=== PATIENT | male | born 1975 | race Hispanic/Latino ===

== ENCOUNTER 2017-01-21 07:26 | Inpatient (IN) | payer MEDICAID, OTHER ==
[2017-01-21 07:26] VITALS: BMI 33.0
[2017-01-21 07:55] VITALS: O2SAT 96
--- NOTE | 2017-01-21 09:16 | ED PDOC ---
HPI: Psych/Substance Abuse Time Seen by Provider: 01/21/17 07:33 Chief Complaint (Nursing): Psychiatric Evaluation Chief Complaint (Provider): suicidal ideation History Per: Patient History/Exam Limitations: no limitations Onset/Duration Of Symptoms: Days (x 1 week) Additional Complaint(s): Greg Mejia is a 41 year old male, with a previous medical history of bipolar disorder, schizophrenia, hypertension and hypercholesterolemia, who presents to the ED with complaints of suicidal ideation associated with auditory hallucinations ongoing for the past week. Patient denies any visual hallucinations, homicidal ideation or suicidal plan. He reports voices are "bad " and sad". Patient states he has not been taking his psych medications for the past week because he ran out. PMD: none provided Past Medical History Reviewed: Historical Data, Nursing Documentation, Vital Signs Vital Signs: Last Vital Signs Temp 98.3 F 01/21/17 07:48 Pulse 91 H 01/21/17 07:48 Resp 18 01/21/17 07:48 BP 124/72 01/21/17 07:48 Pulse Ox 96 01/21/17 07:48 - Medical History PMH: Bipolar Disorder, Depression, HTN, Hypercholesterolemia, Schizophrenia Denies: Alzheimer's Disease, Anemia, Arthritis, Asthma, Atrial Fibrillation, Bronchitis, Cardia Arrhythmia, CHF, COPD, Crohn's Disease, Dementia, Diabetes, Diverticulitis, Emphysema, Fractures, Gastritis, Gall Bladder Disease, Hepatitis , HIV, Hyperthyroidism, Hypothyroidism, Kidney Stones, Migraine, Mitral Valve Prolapse, Multiple Sclerosis, Osteoporosis, Pancreatitis, Parkinson's Disease, Peripheral Edema, Pneumonia, Pulmonary Embolism, Chronic Kidney Disease, Rheumatoid Arthritis, Seizures, Sickle Cell Disease, Sexually Transmitted Disease, TIA - Surgical History Surgical History: Denies: Appendectomy, CABG, Carotid Endarterectomy, Cholecystectomy, Coronary Stent, Pacemaker, Tonsillectomy - Family History Family History: States: Unknown Family Hx - Home Medications Home Medications: Ambulatory Orders Medication Instructions Recorded Aspirin [Aspirin Chewable] 81 mg PO DAILY 12/14/16 Atorvastatin [Lipitor] 10 mg PO HS 12/14/16 MetFORMIN [glucOPHAGE] 1,000 mg PO DAILY 12/14/16 Olanzapine [Zyprexa] 20 mg PO HS 12/14/16 Losartan [Cozaar] 25 mg PO DAILY 01/21/17 Omeprazole [Omeprazole] 40 mg PO DAILY 01/21/17 - Allergies Allergies/Adverse Reactions: Allergies Allergy/AdvReac Type Severity Reaction Status Date / Time No Known Allergies Allergy Verified 01/21/17 07:48 Review of Systems ROS Statement: Except As Marked, All Systems Reviewed And Found Negative Psych: Positive for: Suicidal ideation, Other (auditory hallucinations, no visual hallucinations, no homicidal ideation, no suicidal plan) Physical Exam - Reviewed Nursing Documentation Reviewed: Yes Vital Signs Reviewed: Yes - Physical Exam Appears: Positive for: Well, Non-toxic, No Acute Distress Head Exam: Positive for: ATRAUMATIC, NORMAL INSPECTION, NORMOCEPHALIC Skin: Positive for: Normal Color, Warm, DRY Eye Exam: Positive for: EOMI, Normal appearance, PERRL ENT: Positive for: Normal ENT Inspection Neck: Positive for: Normal, Painless ROM Cardiovascular/Chest: Positive for: Regular Rate, Rhythm Respiratory: Positive for: CNT, Normal Breath Sounds Gastrointestinal/Abdominal: Positive for: Normal Exam, Bowel Sounds, Soft Back: Positive for: Normal Inspection Extremity: Positive for: Normal ROM Neurologic/Psych: Positive for: Alert, Oriented, Other (patient is calm and cooperative ) - Laboratory Results Result Diagrams: 01/21/17 10:00 01/21/17 10:00 - ECG O2 Sat by Pulse Oximetry: 96 (RA) Pulse Ox Interpretation: Normal Medical Decision Making Medical Decision Making: Initial Impression: Schizoaffective disorder Initial Plan: * alcohol serum * labs * urine drug screen * crisis evaluation * urinalysis * reevaluation Vital signs are stable. Labs reviewed. In my opinion there are no current acute medical conditions that contraindicate the placement of this patient in a psychiatric unit. Scribe Attestation: Documented by Geovanna Ricketts, acting as a scribe for Jonas Briggs MD. Provider Scribe Attestation: All medical record entries made by the Scribe were at my direction and personally dictated by me. I have reviewed the chart and agree that the record accurately reflects my personal performance of the history, physical exam, medical decision making, and the department course for this patient. I have also personally directed, reviewed, and agree with the discharge instructions and disposition. Disposition - Clinical Impression Clinical Impression: Schizoaffective disorder, Cocaine abuse - Patient ED Disposition Is Patient to be Admitted: Yes Doctor Will See Patient In The: Hospital Counseled Patient/Family Regarding: Studies Performed, Diagnosis - Disposition Disposition Time: 12:32 Condition: GOOD - Pt Status Changed To: Hospital Disposition Of: Inpatient - Admit Certification Admit to Inpatient:: After my assessment, the patient will require hospitalization for at least two midnights. This is because of the severity of symptoms shown, intensity of services needed, and/or the medical risk in this patient being treated as an outpatient. - POA Present On Arrival: None
[2017-01-21 10:06] LABS: BASO # 0.1 K/uL (0.0-0.2); BASO % 0.8 % (0.0-2.0); EOS # 0.7 K/uL (0.0-0.7); EOS % 8.1 % (0.0-4.0); HEMOGLOBIN 12.6 g/dL (12.0-18.0); LYMPH # 1.8 K/uL (1.0-4.3); MEAN CELL VOLUME 87.1 fl (80.0-94.0); MEAN CORPUSCULAR HEMOGLOBIN 29.4 pg (27.0-31.0); MEAN CORPUSCULAR HGB CONC 33.8 g/dL (33.0-37.0); MEAN PLATELET VOLUME 8.6 fl (7.2-11.7); MONO # 0.8 K/uL (0.0-0.8); MONO % 9.9 % (0.0-10.0); NEUT # 4.8 K/uL (1.8-7.0); NEUT % 59.2 % (50.0-75.0); NRBC % 0.1 % (0.0-0.0); RBC 4.29 Mil/uL (4.40-5.90); WHITE BLOOD COUNT 8.1 K/uL (4.8-10.8)
[2017-01-21 10:23] LABS: BARBITURATES, UR NEGATIVE (NEGATIVE); BENZODIAZEPINES, UR NEGATIVE (NEGATIVE); OPIATES, UR NEGATIVE (NEGATIVE); PHENCYCLIDINE, UR NEGATIVE (NEGATIVE); SQUAMOUS EPITHIAL < 1 /hpf (0-5); URINE BILIRUBIN NEGATIVE (NEGATIVE); URINE BLOOD NEGATIVE (NEGATIVE); URINE CLARITY SLIGHTY-CLOUDY (Clear); URINE COLOR YELLOW (YELLOW); URINE GLUCOSE (UA) NEG (Normal); URINE LEUKOCYTE ESTERASE NEG Leu/uL (Negative); URINE NITRATE NEGATIVE (NEGATIVE); URINE PROTEIN 100 mg/dL (NEGATIVE); URINE UROBILINOGEN 0.2-1.0 mg/dL (0.2-1.0)
[2017-01-21 10:27] LABS: ALB/GLOB RATIO 1.3 (1.0-2.1); ALBUMIN 3.8 g/dL (3.5-5.0); ALT/SGPT 39 U/L (21-72); AST/SGOT 30 U/L (17-59); BLOOD UREA NITROGEN 14 mg/dl (9-20); CALCIUM 9.1 mg/dL (8.4-10.2); GFR AFRICAN-AMERICAN > 60; GFR NON-AFRICAN AMERICAN > 60
[2017-01-21] MEDS ORDERED: Potassium Chloride 20 mEq ER Tab PO ONE ×2 (12:04→12:45)
[2017-01-21] MEDS ORDERED: Magnesium Hydroxide Susp 30 ml UD PO PRN (14:36)
[2017-01-21] MEDS ORDERED: DiphenhydrAMINE 50 mg/ml Inj IM PRN (14:36)
[2017-01-21] MEDS ORDERED: Alum-Mag Hydrox-Simethicone Susp (30 mL) PO PRN (14:36)
--- NOTE | 2017-01-21 14:50 | PCM.PSYCH ---
Initial Psychiatric Evaluation - Initial Psychiatric Evaluation Type of Admission: Voluntary Legal Status: Capacity Chief Complaint (in patient's own words): i stopped my meds Patient's Reaction to Hospitalization: cooperative History of Present Illness and Precipitating Events: pt is a 41 yo male with history of schizophrenia and cocaine dependence. he is living alone in [place]. he goes to [facility] out and has recently been taking 35mg zyprexa at night. he states he was doing well until recently. he relapsed on crack cocaine and has been using daily and has started selling his posessions to pay- he is guarded about his exact use. states he stopped his zyprexa about a week ago and now he is hearing voices that are degrading and negative. he feels depressed, does not want to get out of bed and has suicidal thoughts. he came in seeking help because he wants to live and he states he has no intention now of harming himself. he denies manic symptoms. he reports he does not want to return to [facility] or to an in rehab. Current Medications: Active Medications Generic Name Dose Route Start Last Admin Trade Name Freq PRN Reason Stop Dose Admin Acetaminophen 650 mg 01/21/17 14:36 Tylenol 325mg Tab PO Q4 PRN Pain, moderate (4-7) Al Hydrox/Mg Hydrox/Simethicone 30 ml 01/21/17 14:36 Maalox Plus 30 Ml PO Q4 PRN Dyspepsia Diphenhydramine HCl 50 mg 01/21/17 14:36 Benadryl IM Q6 PRN Extrapyramidal S/S Unable PO Diphenhydramine HCl 50 mg 01/21/17 14:36 Benadryl PO Q6 PRN Extrapyramidal Symptoms Haloperidol 5 mg 01/21/17 14:36 Haldol PO Q4 PRN Agitation Haloperidol Lactate 5 mg 01/21/17 14:36 Haldol IM Q4 PRN Agitation, Unable to Take PO Lorazepam 2 mg 01/21/17 14:36 Ativan IM Q4 PRN Anxiety/Agitation,Unable PO Lorazepam 2 mg 01/21/17 14:36 Ativan PO Q4 PRN Anxiety/Agitation Magnesium Hydroxide 30 ml 01/21/17 14:36 Milk Of Magnesia PO HS PRN Constipation Olanzapine 10 mg 01/21/17 14:45 Zyprexa PO DAILY [facility] Olanzapine 20 mg 01/21/17 22:00 Zyprexa PO [facility] Past Psychiatric History - Past Psychiatric History Previous Treatment History: Inpatient Prior Professional Help: as per hpi. last admission in 2016 Prior Psychiatric Treatment: states he finished [facility] History of Abuse: denies History of ETOH/Drug Use: denies other drug or cigarette use. using crack cocaine. states he only started using in last two weeks. History of Family Illness: denies Pertinent Medical Hx (Current Medical&Sleep Prob, Allergies): Allergies Allergy/AdvReac Type Severity Reaction Status Date / Time No Known Allergies Allergy Verified 01/21/17 07:48 Aspirin [Aspirin Chewable] 81 mg PO DAILY 12/14/16 Atorvastatin [Lipitor] 10 mg PO HS 12/14/16 MetFORMIN [glucOPHAGE] 1,000 mg PO DAILY 12/14/16 Olanzapine [Zyprexa] 20 mg PO HS 12/14/16 Losartan [Cozaar] 25 mg PO DAILY 01/21/17 Omeprazole [Omeprazole] 40 mg PO DAILY 01/21/17 htn, high cholesterol, elevated blood glucose- wants to remain on zyprexa Review of Systems - Psychiatric Psychiatric: As Per HPI, Auditory Hallucinations Mental Status Examination - Personal Presentation Personal Presentation: Looks stated age - Affect Affect: Blunted - Motor Activity Motor Activity: Calm - Reliability in Providing Information Reliability in Providing Information: Good - Speech Speech: Organized - Mood Mood: Depressed - Formal Thought Process Formal Thought Process: Hallucinations, Paranoia - Obsessions/Compulsions Obsessions: No Compulsions: No - Cognitive Functions Orientation: Person, Place, Situation, Time Sensorium: Alert Attention/Concentration: Attentive Abstract Thinking: Glide Estimate of Intelligence: Average Judgement: Intact, as evidence by: Insight regarding need for hospitalization Memory: Recent intact, as evidence by: Ability to recall events of the day, Remote intact, as evidenced by: Ability to recall historical events - Risk Risk: Suicidal (denies plan or intent. feels safe here) - Strength & Assets Inventory Strength & Assets Inventory: Intelligence - Limitations Limitations: Living alone DSM 5 DX - DSM 5 DSM 5 Diagnosis: schizophrenia, paranoid cocaine dependence - Recommended/Plan of Treatment Treatment Recommendations and Plan of Treatment: admit to [facility] for safety and observation gather collateral information provide supportive therapy adjust medications- restart zyprexa. discssed r/b/se with pt who wants to stay on zyprexa as it has been only helpful med consult dr. ann to manage medical issues disposition planning Projected ELOS: 5-7 days Prognosis: fair - Smoking Cessation Smoking Cessation Initiated: No Reason for not providing: shamarlines
--- NOTE | 2017-01-21 15:03 | CP.PCM.CON ---
<MukeshjolantaAndre roman - Last Filed: 01/21/17 15:30> History of Present Illness - History of Present Illness History of Present Illness: 41 y/o male with a PMHx remarkable for schizophrenia, HTN, HLD, and prediabetes presented to Psych for a 2 week history of not taking his medications and abusing cocaine as well as "freaking out". Pt reports he was started hearing voices and was having problems sleeping. Reports voices were sad and bad telling him to hurt himself. Denies visual hallucinations. Denies homocidal ideation and does not have suicide plan. Reports feeling fine before stopping his medication. Denies fever/chills, headaches, visual disturbances, CP/SOB/LEIJA/ Palpitations, N/V/D/C, urinary symptoms, numbness/tingling. PMD: Dr. Fang, last visit approx 1 month ago as per pt PMHx: bipolar disorder, schziophrenia, HTN, HLD, prediabetes MEDs: Lipitor 10mg QD, Aspirin 81mg QD, Metformin 1000mg QD, Losartan 25mg QD, Omeprazole 40mg QD PSurgHx: none ALL: NKDA SocialHx: positive cocaine abuse, denies ETOH, tobacco, other illicit drug use -lives at home alone, in [place], unemployed FamilyHx: mother from HIV comps, same as sister. 3 brothers alive and healthy. Unknown father Denies hx of HI, CAD, Stroke, Cancer. ROS: 12 points reviewed, found to be negative GEN: AAOx3, calm, NAD HEENT: atraumatic, EMOI, TERE, conjuctiva clear, sclera nonicteric Neck: supple, FROM, no adenopathy, no cartoid bruit CVS: S1 S2 +, RRR, no MRG, no JVD ABD: +BS, soft, NT/ND, no guarding/rigidity/firmness Ext: no signs of trauma, pulses 2+ throughout, no pedal edema Neuro: CN II-XII grossly intact, DTRs 2+ b/l, sensation intact Psych: alert, flat affect, cooperative with examination Assessment: 41 y/o male with a PMHx of biopolar disorder, schizophrenia, HTN, HLD, prediabetes admitted to psych for evaluation and treatment after medical noncompliance and self admission for safety. Plan: 1) Bipolar disorder/Schizophrenia -tx as per psych team 2) Hypertension -c/w home meds 3) Hyperlipidemia -f/u Lipid panel -c/w home meds 4) Prediabetes -f/u HbA1C -c/w home meds will continue to follow pt with Dr. Fang during course of stay. Past Patient History - Infectious Disease Hx of Infectious Diseases: None - Past Medical History & Family History Past Medical History?: Yes - Past Social History Smoking Status: Never Smoked - CARDIAC Hx Atrial Fibrillation: No Hx Cardia Arrhythmia: No Hx Congestive Heart Failure: No Hx Hypercholesterolemia: Yes Hx Hypertension: Yes Hx Mitral Valve Prolapse: No Hx Pacemaker: No Hx Peripheral Edema: No - PULMONARY Hx Asthma: No Hx Bronchitis: No Hx Chronic Obstructive Pulmonary Disease (COPD): No Hx Emphysema: No Hx Pneumonia: No Hx Pulmonary Embolism: No - NEUROLOGICAL Hx Alzheimer's Disease: No Hx Dementia: No Hx Migraine: No Hx Multiple Sclerosis: No Hx Parkinson's Disease: No Hx Seizures: No Hx Transient Ischemic Attacks (TIA): No - HEENT Hx HEENT Problems: No Hx Cataracts: No Hx Deafness: No Hx Difficulty Chewing: No Hx Epistaxis: No Hx Glaucoma: No Hx Macular Degeneration: No - RENAL Hx Chronic Kidney Disease: No Hx Kidney Stones: No - ENDOCRINE/METABOLIC Hx Hyperthyroidism: No Hx Hypothyroidism: No - HEMATOLOGICAL/ONCOLOGICAL Hx Anemia: No Hx Human Immunodeficiency Virus (HIV): No Hx Sickle Cell Disease: No - INTEGUMENTARY Hx Dermatological Problems: No Hx Basil Cell: No Hx Duran: No Hx Cellulitis: No Hx Eczema: No Hx Melanoma: No Hx Psoriasis: No Hx Squamous Cell: No - MUSCULOSKELETAL/RHEUMATOLOGICAL Hx Arthritis: No Hx Fractures: No Hx Osteoporosis: No Hx Rheumatoid Arthritis: No - GASTROINTESTINAL Hx Crohn's Disease: No Hx Diverticulitis: No Hx Gall Bladder Disease: No Hx Gastritis: No Hx Pancreatitis: No - GENITOURINARY/GYNECOLOGICAL Hx Sexually Transmitted Disorders: No - PSYCHIATRIC Hx Bipolar Disorder: Yes Hx Depression: Yes Hx Schizophrenia: Yes - SURGICAL HISTORY Hx Appendectomy: No Hx Carotid Endarterectomy: No Hx Cholecystectomy: No Hx Coronary Artery Bypass Graft: No Hx Coronary Stent: No Hx Tonsillectomy: No - ANESTHESIA Hx Anesthesia: No Meds Allergies/Adverse Reactions: Allergies Allergy/AdvReac Type Severity Reaction Status Date / Time No Known Allergies Allergy Verified 01/21/17 07:48 - Medications Medications: Current Medications Acetaminophen (Tylenol 325mg Tab) 650 mg PO Q4 PRN PRN Reason: Pain, moderate (4-7) Al Hydrox/Mg Hydrox/Simethicone (Maalox Plus 30 Ml) 30 ml PO Q4 PRN PRN Reason: Dyspepsia Diphenhydramine HCl (Benadryl) 50 mg IM Q6 PRN PRN Reason: Extrapyramidal S/S Unable PO Diphenhydramine HCl (Benadryl) 50 mg PO Q6 PRN PRN Reason: Extrapyramidal Symptoms Haloperidol (Haldol) 5 mg PO Q4 PRN PRN Reason: Agitation Haloperidol Lactate (Haldol) 5 mg IM Q4 PRN PRN Reason: Agitation, Unable to Take PO Lorazepam (Ativan) 2 mg IM Q4 PRN PRN Reason: Anxiety/Agitation,Unable PO Lorazepam (Ativan) 2 mg PO Q4 PRN PRN Reason: Anxiety/Agitation Magnesium Hydroxide (Milk Of Magnesia) 30 ml PO HS PRN PRN Reason: Constipation Olanzapine (Zyprexa) 10 mg PO DAILY [place] Olanzapine (Zyprexa) 20 mg PO HS [place] Results - Vital Signs Recent Vital Signs: Last Vital Signs Temp 97.6 F 01/21/17 13:17 Pulse 91 H 01/21/17 13:17 Resp 20 01/21/17 14:39 BP 128/73 01/21/17 13:17 Pulse Ox 96 01/21/17 14:02 - Labs Result Diagrams: 01/21/17 10:00 01/21/17 10:00 <Harsha Fang - Last Filed: 01/21/17 23:12> Meds - Medications Medications: Current Medications Acetaminophen (Tylenol 325mg Tab) 650 mg PO Q4 PRN PRN Reason: Pain, moderate (4-7) Al Hydrox/Mg Hydrox/Simethicone (Maalox Plus 30 Ml) 30 ml PO Q4 PRN PRN Reason: Dyspepsia Aspirin (Ecotrin) 81 mg PO DAILY [place] Atorvastatin Calcium (Lipitor) 10 mg PO DAILY [place] Diphenhydramine HCl (Benadryl) 50 mg IM Q6 PRN PRN Reason: Extrapyramidal S/S Unable PO Diphenhydramine HCl (Benadryl) 50 mg PO Q6 PRN PRN Reason: Extrapyramidal Symptoms Haloperidol (Haldol) 5 mg PO Q4 PRN PRN Reason: Agitation Haloperidol Lactate (Haldol) 5 mg IM Q4 PRN PRN Reason: Agitation, Unable to Take PO Lorazepam (Ativan) 2 mg IM Q4 PRN PRN Reason: Anxiety/Agitation,Unable PO Lorazepam (Ativan) 2 mg PO Q4 PRN PRN Reason: Anxiety/Agitation Losartan Potassium (Cozaar) 25 mg PO DAILY [place] Magnesium Hydroxide (Milk Of Magnesia) 30 ml PO HS PRN PRN Reason: Constipation Metformin HCl (Glucophage) 1,000 mg PO BRK [place] Olanzapine (Zyprexa) 10 mg PO DAILY [place] Last Admin: 01/21/17 16:37 Dose: 10 mg Olanzapine (Zyprexa) 20 mg PO HS [place] Last Admin: 01/21/17 21:21 Dose: 20 mg Results - Vital Signs Recent Vital Signs: Last Vital Signs Temp 97.2 F L 01/21/17 16:09 Pulse 79 01/21/17 16:09 Resp 18 01/21/17 16:09 BP 121/74 01/21/17 16:09 Pulse Ox 96 01/21/17 14:02 - Labs Result Diagrams: 01/21/17 10:00 01/21/17 10:00 Assessment & Plan - Assessment and Plan (Free Text) Plan: Patient is known tome. I discussed with Dr Luz re plans of care and tx. Harsha Fang M.D.
[2017-01-22 07:52] LABS: HDL CHOLESTEROL 44 MG/DL (30-70)
[2017-01-22 08:03] LABS: LDL CHOLESTEROL 57 mg/dL (0-129)
--- NOTE | 2017-01-22 12:23 | PCM.PYCHPN ---
Psychiatric Progress Note - Psychiatric Progress Note Patient seen today, length of contact: in treatment team Patient Chief Complaint: i slept Problems Identified/Issues Discussed: pt seen in treatment team. no side effects with medications. did sleep with only 10mg zyprexa. he is asking for his usual dose tonight. states the voices have improved already. states he feels depressed currently, tired. pt agrees to stay over the weekend to monitor. remains ambivalent about wanting to get substance abuse treatment Medication Change: Yes Medical Record Reviewed: Yes Mental Status Examination - Cognitive Function Orientation: Person, Place, Situation, Time Memory: Intact Attention: WNL Concentration: WNL Association: [facility] Fund of Knowledge: [facility] Decription of patient's judgement and insights: fair - Mood Mood: Depressed - Affect Affect: Blunted - Speech Speech: Appropriate - Formal Thought Process Formal Thought Process: Hallucinations (denies currently. somewhat paranoid/ internally preoccupied/guarded), Other - Suicidal Ideation Suicidal Ideation: No Plan: denies si/hi. currently - Homicidal Ideation Homicidal Ideation: No Goal/Treatment Plan - Goal/Treatment Plan Need for Continued Stay: Remain at risks for inpatient hospitalization, Discharge may exacerbated symptoms Progress Toward Problem(s) and Goals/Treatment Plan: schizoaffective disorder cocaine dependence pt tolerating zyprexa will increase to 30mg hs and monitor encourage participation in groups disposition planning Estimated Date of D/C: 01/26/17 - Smoking Cessation Smoking Cessation Initiated: Yes
--- NOTE | 2017-01-23 10:28 | PCM.PYCHPN ---
Psychiatric Progress Note - Psychiatric Progress Note Patient seen today, length of contact: discussed with team Patient Chief Complaint: i am sleeping Problems Identified/Issues Discussed: pt reports his sleep is improved. he is reporting he still hears voices, but they are coming and going and not constant. he denies having suicidal thoughts now. he isolates in his room. Medication Change: No Medical Record Reviewed: Yes Mental Status Examination - Cognitive Function Orientation: Person, Place, Situation, Time Memory: Intact Attention: WNL Concentration: WNL Association: WNL Fund of Knowledge: [facility] Decription of patient's judgement and insights: fair - Mood Mood: Depressed - Affect Affect: Blunted - Speech Speech: Appropriate - Formal Thought Process Formal Thought Process: Hallucinations (reports ah, slightly improved over admission), Other (paranoid, internally preoccupied, isolating) - Suicidal Ideation Suicidal Ideation: No - Homicidal Ideation Homicidal Ideation: No Goal/Treatment Plan - Goal/Treatment Plan Need for Continued Stay: Remain at risks for inpatient hospitalization, Discharge may exacerbated symptoms Progress Toward Problem(s) and Goals/Treatment Plan: schizoaffective disorder cocaine dependence pt tolerating zyprexa will continue 30mg hs and monitor encourage participation in groups disposition planning Estimated Date of D/C: 01/27/17
--- NOTE | 2017-01-24 11:40 | PCM.PYCHPN ---
Psychiatric Progress Note - Psychiatric Progress Note Patient seen today, length of contact: discussed with team Patient Chief Complaint: i am depressed i guess Problems Identified/Issues Discussed: pt states the voices are getting better. feels depressed. discussed raising zyprexa back to his current home dose and he agrees. pt with recent heavy cocaine use and he states depression is expected. he feels safe on the unit. Medication Change: Yes (increase zyprexa) Medical Record Reviewed: Yes Mental Status Examination - Cognitive Function Orientation: Person, Place, Situation, Time Memory: Intact Attention: WNL Concentration: WNL Association: WNL Fund of Knowledge: [facility] Decription of patient's judgement and insights: fair - Mood Mood: Depressed - Affect Affect: Blunted - Speech Speech: Appropriate - Formal Thought Process Formal Thought Process: Hallucinations (continue to improve), Other (paranoid, internally preoccupied, isolating) - Suicidal Ideation Suicidal Ideation: No - Homicidal Ideation Homicidal Ideation: No Goal/Treatment Plan - Goal/Treatment Plan Need for Continued Stay: Remain at risks for inpatient hospitalization, Discharge may exacerbated symptoms Progress Toward Problem(s) and Goals/Treatment Plan: schizoaffective disorder cocaine dependence pt tolerating zyprexa will resume his home dose of zyprexa 35 hs and monitor t/c starting wellbutrin for depression, but will monitor for now encourage participation in groups disposition planning Estimated Date of D/C: 01/27/17
--- NOTE | 2017-01-25 13:30 | PCM.PYCHPN ---
Psychiatric Progress Note - Psychiatric Progress Note Patient seen today, length of contact: discussed with team Patient Chief Complaint: the depression is better Problems Identified/Issues Discussed: pt still isolates in room. states voice are better- not constant, but he is still asking for haldol at times. he reports his depression seems to be lifting. he feels safe in hospital. Medication Change: No ( ) Medical Record Reviewed: Yes Mental Status Examination - Cognitive Function Orientation: Person, Place, Situation, Time Memory: Intact Attention: WNL Concentration: WNL Association: WNL Fund of Knowledge: [facility] Decription of patient's judgement and insights: fair - Mood Mood: Depressed (states he's improving) - Affect Affect: Blunted - Speech Speech: Appropriate - Formal Thought Process Formal Thought Process: Hallucinations (continue to improve), Other (paranoid, internally preoccupied, isolating) - Suicidal Ideation Suicidal Ideation: No - Homicidal Ideation Homicidal Ideation: No Goal/Treatment Plan - Goal/Treatment Plan Need for Continued Stay: Remain at risks for inpatient hospitalization, Discharge may exacerbated symptoms Progress Toward Problem(s) and Goals/Treatment Plan: schizoaffective disorder cocaine dependence pt tolerating zyprexa will continue home dose of zyprexa 35 hs and monitor encourage participation in groups disposition planning Estimated Date of D/C: 01/27/17
--- NOTE | 2017-01-26 11:36 | PCM.PYCHPN ---
Psychiatric Progress Note - Psychiatric Progress Note Patient seen today, length of contact: discussed with team Patient Chief Complaint: a little better Problems Identified/Issues Discussed: pt states voices are still there, but slightly less intense. he gets haldol prn. mood improved. still internally preoccupied. wants to go back to [facility] Medication Change: No ( ) Medical Record Reviewed: Yes Mental Status Examination - Cognitive Function Orientation: Person, Place, Situation, Time Memory: Intact Attention: WNL Concentration: WNL Association: WNL Fund of Knowledge: [facility] Decription of patient's judgement and insights: fair - Mood Mood: Depressed (states he's improving) - Affect Affect: Blunted - Speech Speech: Appropriate - Formal Thought Process Formal Thought Process: Hallucinations (continue to improve), Other (paranoid, internally preoccupied, isolating) - Suicidal Ideation Suicidal Ideation: No - Homicidal Ideation Homicidal Ideation: No Goal/Treatment Plan - Goal/Treatment Plan Need for Continued Stay: Remain at risks for inpatient hospitalization, Discharge may exacerbated symptoms Progress Toward Problem(s) and Goals/Treatment Plan: schizoaffective disorder cocaine dependence pt tolerating zyprexa will continue home dose of zyprexa 35 hs and monitor as pt is making improvements encourage participation in groups disposition planning Estimated Date of D/C: 01/27/17
--- NOTE | 2017-01-27 09:46 | PCM.PYCHPN ---
Psychiatric Progress Note - Psychiatric Progress Note Patient seen today, length of contact: discussed with team Patient Chief Complaint: i feel more energetic Problems Identified/Issues Discussed: pt continues to note an improvement in symptoms. he is denying medication side effects. states his sleep is better. Medication Change: No ( ) Medical Record Reviewed: Yes Mental Status Examination - Cognitive Function Orientation: Person, Place, Situation, Time Memory: Intact Attention: WNL Concentration: WNL Association: WNL Fund of Knowledge: [facility] Decription of patient's judgement and insights: fair - Mood Mood: Depressed - Affect Affect: Blunted - Speech Speech: Appropriate - Formal Thought Process Formal Thought Process: Hallucinations (pt reports ah are improving), Other ( paranoid, internally preoccupied, isolating) - Suicidal Ideation Suicidal Ideation: No - Homicidal Ideation Homicidal Ideation: No Goal/Treatment Plan - Goal/Treatment Plan Need for Continued Stay: Remain at risks for inpatient hospitalization, Discharge may exacerbated symptoms Progress Toward Problem(s) and Goals/Treatment Plan: schizoaffective disorder cocaine dependence pt tolerating zyprexa will continue home dose of zyprexa 35 hs and monitor as pt is making improvements encourage participation in groups disposition planning Estimated Date of D/C: 01/29/17
--- NOTE | 2017-01-27 10:05 | CARD ---
APPROVED REPORT EKG Measurement Heart [id number] <Conclusion> Normal sinus rhythm Prolonged QT Abnormal ECG
--- NOTE | 2017-01-28 10:34 | PCM.PYCHPN ---
Psychiatric Progress Note - Psychiatric Progress Note Patient seen today, length of contact: discussed with team Patient Chief Complaint: i heard my mother's voice Problems Identified/Issues Discussed: pt states he is feeling a little better every day. states his sleep is much improved. he is a bit anxious regarding possible discharged tomorrow. states he feels safe in the hospital. pt does not want an adjustment in his medications. Medication Change: No ( ) Medical Record Reviewed: Yes Mental Status Examination - Cognitive Function Orientation: Person, Place, Situation, Time Memory: Intact Attention: WNL Concentration: WNL Association: WN Fund of Knowledge: [facility] Decription of patient's judgement and insights: fair - Mood Mood: Depressed - Affect Affect: Blunted - Speech Speech: Appropriate - Formal Thought Process Formal Thought Process: Hallucinations (pt reports ah are improving), Other ( paranoid, internally preoccupied, isolating) - Suicidal Ideation Suicidal Ideation: No - Homicidal Ideation Homicidal Ideation: No Goal/Treatment Plan - Goal/Treatment Plan Need for Continued Stay: Remain at risks for inpatient hospitalization, Discharge may exacerbated symptoms Progress Toward Problem(s) and Goals/Treatment Plan: schizoaffective disorder cocaine dependence pt tolerating zyprexa will continue home dose of zyprexa 35 hs and monitor as pt is making improvements. offered to split dose but pt refuses encourage participation in groups disposition planning- attempt to discharge tomorrow Estimated Date of D/C: 01/29/17
[2017-01-29 09:15] VITALS: BP 124/78; PULSE 83; RESP 18; TEMP 97.5
--- NOTE | 2017-01-29 14:29 | PCM.PYCHDC ---
Mental Status Examination - Mental Status Examination Orientation: Person, Place, Situation, Time Memory: Intact Mood: Neutral Affect: Constricted (but with reactive smile) Speech: Appropriate Attention: WNL Concentration: WNL Association: WNL Fund of Knowledge: WNL Formal Thought Process: Hallucinations (reports hears mothers voice comforting him) Description of patient's judgement and insight: fair Psychotic Thoughts and Behaviors: as above. states he is comforted by ah Suicidal Ideation: No Current Homicidal Ideation?: No Plan: pt denies any suicidal or homicidal thoughts/plans or intent Discharge Summary - Discharge Note Reason for Hospitalization: reported using cocaine, no meds for 3 weeks. return of depression and ah. Psychiatric History (includes Medical, Family, Personal Hx): history of schizophrenia and cocaine dependence Consultations:: List each consultation separately and include: 1. Reason for request. 2. Findings. 3. Follow-up Consultations: seen by hospitalist Summary of Hospital Course include:: 1. Description of specific treatment plan utilized for patients during their course of treatmen. 2. Summarize the time- course for resolution of acute symptoms and/or regressed behaviors. 3. Describe issues identified and worked on during hospitalization. 4. Describe medication utilized. 5. Describe medical problems identified and treated. 6. Reassessment of suicide risk Summary of Hospital Course: pt is a 41 yo male with history of schizophrenia and cocaine dependence. he is living [place] in [place]. he goes to [facility] and has recently been taking 35mg zyprexa at night. he states he was doing well until recently. he relapsed on crack cocaine and has been using daily and has started selling his posessions to pay- he is guarded about his exact use. states he stopped his zyprexa about a week ago and now he is hearing voices that are degrading and negative. he feels depressed, does not want to get out of bed and has suicidal thoughts. he came in seeking help because he wants to live and he states he has no intention now of harming himself. he denies manic symptoms. he reports he does not want to return to [facility] or to an inpt rehab. hospital course pt admitted to [facility] and oriented to the unit. seen by the hospitlist. placed on routine safety protocols. started on zyprexa and dose titrated up to his usual dose of 35mg hs. he did not think he needed other medications. he was receiving prn haldol and understood he would not get it at home. he was stating he was feeling better and asked to live today. team encouraged pt to stay until wednesday but he insisted he was no longer depressed and that he was now only hearing his mothers voice which comforted him. he was stating he would seek help if he was feeling unsafe. he was agreeable to return to [facility]. at the time of discharge he was denying any suicidal or homicidal thoughts. - Final Diagnosis (DSM 5) Condition upon Discharge: GOOD DSM 5: schizophrenia, paranoid type cocaine dependence Disposition: HOME/ ROUTINE Follow-up Treatment Plan: follow up with aftercare as directed take medications as prescribed do not use alcohol, tobacco or other illicit substances call 911 if any suicidal or homicidal thoughts attend aa/na groups daily f.u with your primary care doctor Prescriptions/Medication Reconciliation: Aspirin [Ecotrin] 81 mg PO DAILY #30 Atorvastatin [Lipitor] 10 mg PO DAILY #30 tab Losartan [Cozaar] 25 mg PO DAILY #30 tab MetFORMIN [glucoPHAGE] 1,000 mg PO BRK #30 tab Olanzapine [Zyprexa] 15 mg PO HS #15 tablet Olanzapine [Zyprexa] 20 mg PO HS #15 tablet - Smoking Cessation Smoking Cessation Medication prescribed: No Reason for not providing: declines - Antipsychotic Medications Pt discharged on 2 or more routine antipsychotic medications: No
== END 2017-01-29 15:25 | disposition home or self-care (01) | DRG 430 ==
LOC: H.ER 07:26 → H.ERHOLD 12:32 → H.PSYCH 13:38
PROVIDERS: ADMIT Psychiatry & Neurology Psychiatry; ATTEND Psychiatry & Neurology Psychiatry
PROC: GZHZZZZ Group Psychotherapy (ICD-10-PCS; principal; 2017-01-21)
PROC: GZ58ZZZ Individual Psychotherapy, Cognitive-Behavioral (ICD-10-PCS; 2017-01-21)
DX: F20.0 Paranoid schizophrenia (principal); F14.20 Cocaine dependence, uncomplicated; R45.851 Suicidal ideations; I10 Essential (primary) hypertension; F31.9 Bipolar disorder, unspecified; E78.5 Hyperlipidemia, unspecified; R73.03 Prediabetes; E78.00 Pure hypercholesterolemia, unspecified; Z91.19 Patient's noncompliance with other medical treatment and regimen

== ENCOUNTER 2017-03-31 00:23 | Emergency (ER) | payer MEDICAID, OTHER ==
[2017-03-31 00:24] VITALS: BMI 33.0
[2017-03-31 00:35] VITALS: BP 129/80; PULSE 80; RESP 16; TEMP 98.6; O2SAT 100
--- NOTE | 2017-03-31 01:03 | ED PDOC ---
HPI: Psych/Substance Abuse Time Seen by Provider: 03/31/17 00:42 Chief Complaint (Nursing): Medical Clearance Chief Complaint (Provider): clearance History Per: Patient History/Exam Limitations: no limitations Additional History Per: Patient Additional Complaint(s): 41 y/o male history of schizophrenia, bipolar, hypertension, hyperlipidemia brought in police custody for clearance for incarceration. Patient states he has been off of his psych meds for 2 weeks because he has not gone to his outpatient program because he was using cocaine and alcohol again. Last used yesterday. Patient states he is hearing voices of his mother telling him he is going to be ok. Denies suicidal/homicidal ideations, headache, chest pain, shortness of breath, palpitations. Past Medical History Reviewed: Historical Data, Nursing Documentation, Vital Signs Vital Signs: Last Vital Signs Temp 98.6 F 03/31/17 00:32 Pulse 80 03/31/17 00:32 Resp 16 03/31/17 00:32 BP 129/80 03/31/17 00:32 Pulse Ox 100 03/31/17 00:32 - Medical History PMH: Bipolar Disorder, Depression, HTN, Hypercholesterolemia, Schizophrenia Denies: Alzheimer's Disease, Anemia, Arthritis, Asthma, Atrial Fibrillation, Bronchitis, Cardia Arrhythmia, CHF, COPD, Crohn's Disease, Dementia, Diabetes, Diverticulitis, Emphysema, Fractures, Gastritis, Gall Bladder Disease, Hepatitis , HIV, Hyperthyroidism, Hypothyroidism, Kidney Stones, Migraine, Mitral Valve Prolapse, Multiple Sclerosis, Osteoporosis, Pancreatitis, Parkinson's Disease, Peripheral Edema, Pneumonia, Pulmonary Embolism, Chronic Kidney Disease, Rheumatoid Arthritis, Seizures, Sickle Cell Disease, Sexually Transmitted Disease, TIA - Surgical History Surgical History: Denies: Appendectomy, CABG, Carotid Endarterectomy, Cholecystectomy, Coronary Stent, Pacemaker, Tonsillectomy - Family History Family History: States: Unknown Family Hx - Social History Current smoker - smoking cessation education provided: Yes Alcohol: Occasional Drugs: Cocaine - Home Medications Home Medications: Ambulatory Orders Medication Instructions Recorded Aspirin [Ecotrin] 81 mg PO DAILY #30 01/29/17 Atorvastatin [Lipitor] 10 mg PO DAILY #30 tab 01/29/17 Losartan [Cozaar] 25 mg PO DAILY #30 tab 01/29/17 MetFORMIN [glucoPHAGE] 1,000 mg PO BRK #30 tab 01/29/17 Olanzapine [Zyprexa] 15 mg PO HS #15 tablet 01/29/17 Olanzapine [Zyprexa] 20 mg PO HS #15 tablet 01/29/17 - Allergies Allergies/Adverse Reactions: Allergies Allergy/AdvReac Type Severity Reaction Status Date / Time No Known Allergies Allergy Verified 03/31/17 00:31 Review of Systems ROS Statement: Except As Marked, All Systems Reviewed And Found Negative Psych: Positive for: Psychosis Physical Exam - Reviewed Nursing Documentation Reviewed: Yes Vital Signs Reviewed: Yes - Physical Exam Appears: Positive for: Well, Non-toxic, No Acute Distress Head Exam: Positive for: ATRAUMATIC, NORMAL INSPECTION, NORMOCEPHALIC Skin: Positive for: Normal Color Eye Exam: Positive for: Normal appearance ENT: Positive for: Normal ENT Inspection Cardiovascular/Chest: Positive for: Regular Rate, Rhythm Respiratory: Positive for: Normal Breath Sounds Gastrointestinal/Abdominal: Positive for: Normal Exam Back: Positive for: Normal Inspection Extremity: Positive for: Normal ROM Neurologic/Psych: Positive for: Alert, Oriented - ECG O2 Sat by Pulse Oximetry: 100 - Progress ED Course And Treament: Patient evaluated by insemination worker; does not meet criteria for admission at this time as per Dr. Knapp. Stable for discharge. Disposition - Clinical Impression Clinical Impression: Schizoaffective disorder - Patient ED Disposition Is Patient to be Admitted: No Counseled Patient/Family Regarding: Diagnosis, Need For Followup - Disposition Referrals: Harsha Fang MD [Primary Care Provider] - Disposition: Discharged/Transfer to Law Enforcement Disposition Time: 01:43 Condition: STABLE Additional Instructions: Patient medically and psychiatrically cleared for incarceration. Instructions: Schizoaffective Disorder (ED)
== END 2017-03-31 02:15 ==
LOC: H.ER 00:23
DX: F25.1 Schizoaffective disorder, depressive type (principal); F31.9 Bipolar disorder, unspecified; I10 Essential (primary) hypertension; Z79.82 Long term (current) use of aspirin; Z79.84 Long term (current) use of oral hypoglycemic drugs; E78.5 Hyperlipidemia, unspecified

== ENCOUNTER 2017-07-21 10:50 | Inpatient (IN) | payer MEDICAID, OTHER ==
[2017-07-21 10:50] VITALS: BMI 25.8
--- NOTE | 2017-07-21 12:42 | ED PDOC ---
HPI: Psych/Substance Abuse Time Seen by Provider: 07/21/17 11:11 Chief Complaint (Nursing): Psychiatric Evaluation Chief Complaint (Provider): Psychiatric Evaluation History Per: Patient History/Exam Limitations: no limitations Onset/Duration Of Symptoms: Other (x 2 weeks) Current Symptoms Are (Timing): Still Present Additional Complaint(s): Maurilio is a 41 year old male, with a past medical history of diabetes and depression, presents to the emergency department reporting depression along with suicidal thoughts with plan. Patient states he has been off his medications for 2 weeks, since he was unable to see physician. Denies homicidal ideations. No physical complaints at this time. PMD: Provider TBMiroslava Past Medical History Reviewed: Historical Data, Nursing Documentation, Vital Signs Vital Signs: Last Vital Signs Temp 98.5 F 07/21/17 11:02 Pulse 88 07/21/17 11:02 Resp 16 07/21/17 11:02 BP 110/82 07/21/17 11:02 Pulse Ox 98 07/21/17 11:02 - Medical History PMH: Bipolar Disorder, Depression, HTN, Hypercholesterolemia, Schizophrenia Denies: Alzheimer's Disease, Anemia, Arthritis, Asthma, Atrial Fibrillation, Bronchitis, Cardia Arrhythmia, CHF, COPD, Crohn's Disease, Dementia, Diabetes, Diverticulitis, Emphysema, Fractures, Gastritis, Gall Bladder Disease, Hepatitis , HIV, Hyperthyroidism, Hypothyroidism, Kidney Stones, Migraine, Mitral Valve Prolapse, Multiple Sclerosis, Osteoporosis, Pancreatitis, Parkinson's Disease, Peripheral Edema, Pneumonia, Pulmonary Embolism, Chronic Kidney Disease, Rheumatoid Arthritis, Seizures, Sickle Cell Disease, Sexually Transmitted Disease, TIA - Surgical History Surgical History: Denies: Appendectomy, CABG, Carotid Endarterectomy, Cholecystectomy, Coronary Stent, Pacemaker, Tonsillectomy - Family History Family History: States: Unknown Family Hx - Living Arrangements Living Arrangements: With Family - Social History Current smoker - smoking cessation education provided: No Alcohol: None Drugs: Denies - Immunization History Hx Tetanus Toxoid Vaccination: No Hx Influenza Vaccination: No Hx Pneumococcal Vaccination: No - Home Medications Home Medications: Ambulatory Orders Medication Instructions Recorded Aspirin [Ecotrin] 81 mg PO DAILY #30 01/29/17 Atorvastatin [Lipitor] 10 mg PO DAILY #30 tab 01/29/17 Losartan [Cozaar] 25 mg PO DAILY #30 tab 01/29/17 MetFORMIN [glucoPHAGE] 1,000 mg PO BRK #30 tab 01/29/17 Atorvastatin [Lipitor] 10 mg PO HS tab 05/28/17 Fenofibrate [Tricor] 145 mg PO DAILY tab 05/28/17 Losartan [Cozaar] 25 mg PO DAILY tab 05/28/17 MetFORMIN [glucoPHAGE] 1,000 mg PO BIDWM tab 05/28/17 OLANZapine [Zyprexa] 20 mg PO HS 30 Days #60 tab 05/28/17 Pantoprazole [Protonix EC Tab] 40 mg PO DAILY ect 05/28/17 Sertraline [Zoloft] 50 mg PO DAILY 30 Days #30 tab 05/28/17 - Allergies Allergies/Adverse Reactions: Allergies Allergy/AdvReac Type Severity Reaction Status Date / Time No Known Allergies Allergy Verified 07/21/17 11:35 Review of Systems ROS Statement: Except As Marked, All Systems Reviewed And Found Negative Psych: Positive for: Depression, Suicidal ideation. Negative for: Other ( Homicidal Ideation) Physical Exam - Reviewed Nursing Documentation Reviewed: Yes Vital Signs Reviewed: Yes - Physical Exam Appears: Positive for: Non-toxic Head Exam: Positive for: NORMAL INSPECTION Skin: Positive for: Normal Color Eye Exam: Positive for: Normal appearance ENT: Positive for: Normal ENT Inspection Neck: Positive for: Normal Cardiovascular/Chest: Positive for: Regular Rate, Rhythm Respiratory: Negative for: Respiratory Distress Gastrointestinal/Abdominal: Positive for: Normal Exam Extremity: Positive for: Normal ROM Neurologic/Psych: Positive for: Alert - Laboratory Results Result Diagrams: 07/21/17 14:36 07/21/17 14:36 - ECG O2 Sat by Pulse Oximetry: 98 (RA) Pulse Ox Interpretation: Normal Medical Decision Making Medical Decision Making: Time: 11:59 Plan: - Crisis Evaluation - Glucose, Blood, POC Time: 12:41 1:1 Obs for Suicide Precaution Labs resulted and reviewed with Pt who demonstrated full understanding. Medically cleared for admission to [facility] DX; Schizoaffective Dr. Kraus Scribe Attestation: Documented by Alfredo Ordonez, acting as a scribe for MAYELA Geller Provider Scribe Attestation: All medical record entries made by the Scribe were at my direction and personally dictated by me. I have reviewed the chart and agree that the record accurately reflects my personal performance of the history, physical exam, medical decision making, and the department course for this patient. I have also personally directed, reviewed, and agree with the discharge instructions and disposition. Disposition - Clinical Impression Clinical Impression: Schizoaffective disorder - Patient ED Disposition Is Patient to be Admitted: Yes - Disposition Disposition Time: 15:56 Condition: STABLE Forms: [facility] (Yakut) - POA Present On Arrival: None
[2017-07-21 14:49] LABS: BASO # 0.1 K/uL (0.0-0.2); BASO % 1.5 % (0.0-2.0); EOS # 0.8 K/uL (0.0-0.7); EOS % 9.6 % (0.0-4.0); HEMOGLOBIN 12.8 g/dL (12.0-18.0); LYMPH # 1.8 K/uL (1.0-4.3); LYMPH % 21.2 % (20.0-40.0); MEAN CORPUSCULAR HEMOGLOBIN 30.9 pg (27.0-31.0); MEAN CORPUSCULAR HGB CONC 33.1 g/dL (33.0-37.0); MEAN PLATELET VOLUME 8.6 fl (7.2-11.7); MONO # 0.9 K/uL (0.0-0.8); MONO % 10.7 % (0.0-10.0); RBC 4.13 Mil/uL (4.40-5.90); RED CELL DISTRIBUTION WIDTH 16.5 % (11.5-14.5); WHITE BLOOD COUNT 8.7 K/uL (4.8-10.8)
[2017-07-21 14:53] LABS: MEAN CELL VOLUME 93.4 fl (80.0-94.0)
[2017-07-21 14:55] LABS: ALB/GLOB RATIO 1.1 (1.0-2.1); ALBUMIN 3.6 g/dL (3.5-5.0); ALT/SGPT 32 U/L (21-72); AST/SGOT 26 U/L (17-59); BLOOD UREA NITROGEN 13 mg/dl (9-20); GFR AFRICAN-AMERICAN > 60; GFR NON-AFRICAN AMERICAN > 60
--- NOTE | 2017-07-21 14:59 | RAD ---
PROCEDURE: CHEST RADIOGRAPH, 1 VIEW HISTORY: med screening COMPARISON: 05/18/2017 FINDINGS: LUNGS: Clear. PLEURA: No pneumothorax or pleural fluid seen. CARDIOVASCULAR: Normal. OSSEOUS STRUCTURES: No significant abnormalities. VISUALIZED UPPER ABDOMEN: Normal. OTHER FINDINGS: None. IMPRESSION: No active disease.
[2017-07-21 15:43] LABS: SQUAMOUS EPITHIAL < 1 /hpf (0-5); URINE BILIRUBIN NEGATIVE (NEGATIVE); URINE BLOOD NEGATIVE (NEGATIVE); URINE CLARITY SLIGHTY-CLOUDY (Clear); URINE COLOR YELLOW (YELLOW); URINE GLUCOSE (UA) NEG (Normal); URINE LEUKOCYTE ESTERASE NEG Leu/uL (Negative); URINE NITRATE NEGATIVE (NEGATIVE); URINE PROTEIN NEGATIVE (NEGATIVE); URINE UROBILINOGEN 0.2-1.0 mg/dL (0.2-1.0)
[2017-07-21 16:56] VITALS: O2SAT 99
[2017-07-21 17:11] LABS: BARBITURATES, UR NEGATIVE (NEGATIVE); BENZODIAZEPINES, UR NE (NEGATIVE); OPIATES, UR NEGATIVE (NEGATIVE); PHENCYCLIDINE, UR NEGATIVE (NEGATIVE)
[2017-07-21] MEDS ORDERED: Magnesium Hydroxide Susp 30 ml UD PO PRN (17:42)
[2017-07-21] MEDS ORDERED: Alum-Mag Hydrox-Simethicone Susp (30 mL) PO PRN (17:42)
[2017-07-21] MEDS ORDERED: DiphenhydrAMINE 50 mg/ml Inj IM PRN (17:42)
--- NOTE | 2017-07-21 20:03 | PCM.BM ---
Treatment Plan Problems - Problems identified on initial assessmt Medication nonadherence Date Initiated: 07/21/17 Time Initiated: 20:02 Assessment reference: NA Status: Active Command Auditory Hallucinations Date Initiated: 07/21/17 Time Initiated: 20:03 Assessment reference: NA Status: Active Treatment assets and liabiliti Patient Assests: adapts well, cooperative, self-reliant, ADL independent, physically healthy, negotiates basic needs, good past tx response, financial stabiity Patient Liabilities: poor support system, substance abuse - Milieu Protocol Maintain good personal hygiene: daily Encourage regular showers, daily Remind patient to perform daily oral care, daily Assist patient to perform ADL's Maintain personal safety: daily Educate patient to report safety concerns to staff, daily Monitor environment for contraband/sharps, every shift Educate patient to report safety concerns to staff, every shift Monitor environment for contraband/sharps Medication safety: Monitor for expected outcome, potential side effects: daily, every shift, Assess barriers to learning: daily, every shift, Assess readiness for medication education: daily, every shift
[2017-07-22 07:48] LABS: T4 5.39 ug/dl (5.5-11.0)
--- NOTE | 2017-07-22 08:39 | CP.PCM.CON ---
History of Present Illness - History of Present Illness History of Present Illness: Medicine Consult 41 yr old M with PMHx of HTN, prediabetes, hypercholesterolemia, bipolar disorder, depression, schizophrenia and cocaine abuse admitted to psych for treatment of depression and suicidal ideation. Patient was seen and examined at bedside with attending-Dr. Fang. Patient reports he stopped taking his medications 2 weeks ago and his depression worsened accompanied by thoughts of killing himself. At this time he denies homicidal ideation or a plan to commit suicide. Denies chest pain, SOB, palpitations, weakness or dizziness. No other concerns or complaints at this time. PMD: Dr. Fang Emergency contact: daughter: Katie Mejia [phone] PMHx: HTN, prediabetes, hypercholesterolemia, bipolar disorder, depression, schizophrenia, cocaine abuse SurgHx: none FMHx: mother of AIDS associated disease, father unknown, siblings are healthy SocHx: smoker 20 pack years (recently cut down to 10 cig daily), Cocaine abuse, denies Etoh, lives alone Medications: ASA 81 mg PO QD, Lipitor 10mg PO QHS, Fenofibrate 145mg PO QD, Losartan 25 mg PO QD, Metformin 1,000 mg PO with BRK, Sertraline 50 mg PO QD, Olanzapine 20mg PO QHS, Pantoprazole 40 mg PO QD Allergies: NKDA Review of Systems - Review of Systems All systems: reviewed and no additional remarkable complaints except (for what is mentioned in HPI) - Constitutional Constitutional: absent: Fatigue, Fever - EENT Eyes: absent: Change in Vision Ears: absent: Dizziness Nose/Mouth/Throat: absent: Nasal Congestion, Nasal Discharge - Cardiovascular Cardiovascular: absent: Chest Pain - Respiratory Respiratory: absent: Dyspnea - Gastrointestinal Gastrointestinal: absent: Abdominal Pain, Nausea - Genitourinary Genitourinary: absent: Change in Urinary Stream, Difficulty Urinating, Dysuria - Musculoskeletal Musculoskeletal: absent: Arthralgias - Integumentary Integumentary: absent: Bleeding Lesions - Neurological Neurological: absent: Syncope, Weakness - Psychiatric Psychiatric: absent: Homicidal Ideation, Suicidal Ideation - Hematologic/Lymphatic Hematologic: absent: Easy Bleeding, Easy Bruising Past Patient History - Infectious Disease Hx of Infectious Diseases: None - Past Medical History & Family History Past Medical History?: Yes - Past Social History Alcohol: None Drugs: Denies - CARDIAC Hx Atrial Fibrillation: No Hx Cardia Arrhythmia: No Hx Congestive Heart Failure: No Hx Hypercholesterolemia: Yes Hx Hypertension: Yes Hx Mitral Valve Prolapse: No Hx Pacemaker: No Hx Peripheral Edema: No - PULMONARY Hx Asthma: No Hx Bronchitis: No Hx Chronic Obstructive Pulmonary Disease (COPD): No Hx Emphysema: No Hx Pneumonia: No Hx Pulmonary Embolism: No - NEUROLOGICAL Hx Alzheimer's Disease: No Hx Dementia: No Hx Migraine: No Hx Multiple Sclerosis: No Hx Parkinson's Disease: No Hx Seizures: No Hx Transient Ischemic Attacks (TIA): No - HEENT Hx HEENT Problems: No Hx Cataracts: No Hx Deafness: No Hx Difficulty Chewing: No Hx Epistaxis: No Hx Glaucoma: No Hx Macular Degeneration: No - RENAL Hx Chronic Kidney Disease: No - ENDOCRINE/METABOLIC Hx Hyperthyroidism: No Hx Hypothyroidism: No Other/Comment: patient states he has borderline diabetes, he takes metformin - HEMATOLOGICAL/ONCOLOGICAL Hx Blood Disorders: No Hx Anemia: No Hx Human Immunodeficiency Virus (HIV): No Hx Sickle Cell Disease: No - INTEGUMENTARY Hx Dermatological Problems: No Hx Basil Cell: No Hx Duran: No Hx Cellulitis: No Hx Eczema: No Hx Melanoma: No Hx Psoriasis: No Hx Squamous Cell: No - MUSCULOSKELETAL/RHEUMATOLOGICAL Hx Arthritis: No Hx Fractures: No Hx Osteoporosis: No Hx Rheumatoid Arthritis: No - GASTROINTESTINAL Hx Gastrointestinal Disorders: No Hx Crohn's Disease: No Hx Diverticulitis: No Hx Gall Bladder Disease: No Hx Gastritis: No Hx Pancreatitis: No - GENITOURINARY/GYNECOLOGICAL Hx Genitourinary Disorders: No Hx Sexually Transmitted Disorders: No - PSYCHIATRIC Hx Depression: Yes Hx Schizophrenia: Yes Hx Substance Use: Yes (cocaine) - SURGICAL HISTORY Hx Surgeries: No Hx Appendectomy: No Hx Carotid Endarterectomy: No Hx Cholecystectomy: No Hx Coronary Artery Bypass Graft: No Hx Coronary Stent: No Hx Tonsillectomy: No - ANESTHESIA Hx Anesthesia: No Meds Allergies/Adverse Reactions: Allergies Allergy/AdvReac Type Severity Reaction Status Date / Time No Known Allergies Allergy Verified 07/21/17 11:35 - Medications Medications: Current Medications Acetaminophen (Tylenol 325mg Tab) 650 mg PO Q4 PRN PRN Reason: Pain, moderate (4-7) Al Hydrox/Mg Hydrox/Simethicone (Maalox Plus 30 Ml) 30 ml PO Q4 PRN PRN Reason: Dyspepsia Diphenhydramine HCl (Benadryl) 50 mg IM Q6 PRN PRN Reason: Extrapyramidal S/S Unable PO Diphenhydramine HCl (Benadryl) 50 mg PO Q6 PRN PRN Reason: Extrapyramidal Symptoms Haloperidol (Haldol) 5 mg PO Q4 PRN PRN Reason: Agitation Haloperidol Lactate (Haldol) 5 mg IM Q4 PRN PRN Reason: Agitation, Unable to Take PO Influenza Virus Vaccine (Afluria (Pf)(18yr & Older)) 0.5 ml IM .ONCE ONE Stop: 07/22/17 09:01 Lorazepam (Ativan) 2 mg IM Q4 PRN PRN Reason: Anxiety/Agitation,Unable PO Lorazepam (Ativan) 2 mg PO Q4 PRN PRN Reason: Anxiety/Agitation Magnesium Hydroxide (Milk Of Magnesia) 30 ml PO HS PRN PRN Reason: Constipation Olanzapine (Zyprexa) 5 mg PO HS [place] Last Admin: 07/21/17 21:33 Dose: 5 mg Physical Exam - Constitutional Appears: No Acute Distress (poor hygiene) - Head Exam Head Exam: ATRAUMATIC, NORMOCEPHALIC - Eye Exam Eye Exam: EOMI, PERRL - ENT Exam ENT Exam: Mucous Membranes Moist - Neck Exam Neck exam: Positive for: Full Rom. Negative for: Lymphadenopathy - Respiratory Exam Respiratory Exam: Clear to Auscultation Bilateral, NORMAL BREATHING PATTERN - Cardiovascular Exam Cardiovascular Exam: REGULAR RHYTHM, +S1, +S2 - GI/Abdominal Exam GI & Abdominal Exam: Normal Bowel Sounds, Soft. absent: Tenderness - Extremities Exam Extremities exam: Positive for: full ROM, pedal pulses present. Negative for: pedal edema - Neurological Exam Neurological exam: Alert, CN II-XII Intact, Oriented x3 - Psychiatric Exam Psychiatric exam: Normal Affect, Normal Mood - Skin Skin Exam: Dry (very dry skin -severe on hands), Warm Results - Vital Signs Recent Vital Signs: Last Vital Signs Temp 98.2 F 07/21/17 17:19 Pulse 85 07/21/17 18:37 Resp 15 07/21/17 17:19 BP 125/75 07/21/17 17:19 Pulse Ox 99 07/21/17 16:55 - Labs Result Diagrams: 07/21/17 14:36 07/21/17 14:36 Labs: Laboratory Results - last 24 hr 07/21/17 07/21/17 07/21/17 12:50 14:04 14:36 WBC 8.7 RBC 4.13 L Hgb 12.8 Hct 38.6 MCV 93.4 D MCH 30.9 MCHC 33.1 RDW 16.5 H Plt Count 274 MPV 8.6 Neut % (Auto) 57.0 Lymph % (Auto) 21.2 [place] % (Auto) 10.7 H Eos % (Auto) 9.6 H Baso % (Auto) 1.5 Neut # 5.0 Lymph # 1.8 [place] # 0.9 H Eos # 0.8 H Baso # 0.1 Sodium Potassium Chloride Carbon Dioxide Anion Gap BUN Creatinine Est GFR ( Amer) Est GFR (Non-Af Amer) POC Glucose (mg/dL) 114 H Random Glucose Calcium Total Bilirubin AST ALT Alkaline Phosphatase Total Protein Albumin Globulin Albumin/Globulin Ratio Triglycerides Cholesterol LDL Cholesterol Direct HDL Cholesterol Thyroxine (T4) TSH 3rd Generation Urine Color Yellow Urine Clarity Slighty-cloudy Urine pH 7.0 Ur Specific [place] 1.009 Urine Protein Negative Urine Glucose (UA) Neg Urine Ketones Negative Urine Blood Negative Urine Nitrate Negative Urine Bilirubin Negative Urine Urobilinogen 0.2-1.0 Ur Leukocyte Esterase Neg Urine RBC (Auto) 2 Urine Microscopic WBC 1 Ur Squamous Epith Cells < 1 Urine Opiates Screen Urine Methadone Screen Ur Barbiturates Screen Ur Phencyclidine Scrn Ur Amphetamines Screen U Benzodiazepines Scrn U Oth Cocaine Metabols U Cannabinoids Screen Alcohol, Quantitative 07/21/17 07/21/17 07/22/17 14:36 17:08 06:40 WBC RBC Hgb Hct MCV MCH MCHC RDW Plt Count MPV Neut % (Auto) Lymph % (Auto) [place] % (Auto) Eos % (Auto) Baso % (Auto) Neut # Lymph # [place] # Eos # Baso # Sodium 141 Potassium 4.0 Chloride 106 Carbon Dioxide 27 Anion Gap 12 BUN 13 Creatinine 1.0 Est GFR ( Amer) > 60 Est GFR (Non-Af Amer) > 60 POC Glucose (mg/dL) Random Glucose 124 H Calcium 9.0 Total Bilirubin 0.3 AST 26 ALT 32 Alkaline Phosphatase 56 Total Protein 6.8 Albumin 3.6 Globulin 3.2 Albumin/Globulin Ratio 1.1 Triglycerides 112 Cholesterol 162 LDL Cholesterol Direct 50 HDL Cholesterol 84 H Thyroxine (T4) 5.39 L TSH 3rd Generation 0.95 Urine Color Urine Clarity Urine pH Ur Specific [place] Urine Protein Urine Glucose (UA) Urine Ketones Urine Blood Urine Nitrate Urine Bilirubin Urine Urobilinogen Ur Leukocyte Esterase Urine RBC (Auto) Urine Microscopic WBC Ur Squamous Epith Cells Urine Opiates Screen Negative Urine Methadone Screen Negative Ur Barbiturates Screen Negative Ur Phencyclidine Scrn Negative Ur Amphetamines Screen Negative U Benzodiazepines Scrn Ne U Oth Cocaine Metabols Positive H U Cannabinoids Screen Negative Alcohol, Quantitative < 10 Assessment & Plan - Assessment and Plan (Free Text) Assessment: 41 yr old M with PMHx of HTN, prediabetes, hypercholesterolemia, bipolar disorder, depression, schizophrenia and cocaine abuse admitted to psych for treatment of depression and suicidal ideation. 1. Bipolar disorder/depression/schizophrenia -chronic, stable -patient admitted to psych unit -medication management as per psych 2. HTN -chronic, controlled -continue home medications: Losartan 25 mg PO QD, ASA 81 mg PO QD 3. Prediabetes -chronic, controlled -07/22/17: HbA1c 5.1, lipid panel: cholesterol 162, triglycerides 112, LDL 50, HDL 84 -continue home meds: Metformin 1,000 mg PO with BRK, Lipitor 10mg PO QHS 4. DVT prophylaxis -Lovenox 40 mg SC QD - Date & Time Date: 07/22/17 Time: 08:00
[2017-07-22] MEDS ORDERED: Influenza Vaccine 18yr & older 0.5 ML/45 MCG SYR IM ONE (09:00)
--- NOTE | 2017-07-22 10:40 | CARD ---
APPROVED REPORT EKG Measurement Heart [id number] <Conclusion> Normal sinus rhythm Possible Left atrial enlargement Borderline ECG
--- NOTE | 2017-07-22 13:31 | PCM.PSYCH ---
Initial Psychiatric Evaluation - Initial Psychiatric Evaluation Legal Status: Capacity Chief Complaint (in patient's own words): i was depressed so I started using again Patient's Reaction to Hospitalization: pt requested help History of Present Illness and Precipitating Events: Pt is a 41 year-old, Male who was brought to the ED by his mental health worker, secondary to experiencing auditory hallucinations , commanding in nature as they are telling him to "kill himself." Pt stated he has not been compliant with medications for a month , relapsed on cocaine ,using excessive amounts started feeling increasingly] depressed and experiencing auditory command hallucinations reported decreased sleep and appetite, low energy , low motivation denied manic symptoms, denied homicidal ideations denied thoughts of self harm on the unit Current Medications: Active Medications Generic Name Dose Route Start Last Admin Trade Name Freq PRN Reason Stop Dose Admin Acetaminophen 650 mg 07/21/17 17:42 Tylenol 325mg Tab PO Q4 PRN Pain, moderate (4-7) Al Hydrox/Mg Hydrox/Simethicone 30 ml 07/21/17 17:42 Maalox Plus 30 Ml PO Q4 PRN Dyspepsia Aspirin 81 mg 07/23/17 09:00 Ecotrin PO DAILY [place] Atorvastatin Calcium 10 mg 07/22/17 22:00 Lipitor PO HS [place] Diphenhydramine HCl 50 mg 07/21/17 17:42 Benadryl IM Q6 PRN Extrapyramidal S/S Unable PO Diphenhydramine HCl 50 mg 07/21/17 17:42 Benadryl PO Q6 PRN Extrapyramidal Symptoms Haloperidol 5 mg 07/21/17 17:42 Haldol PO Q4 PRN Agitation Haloperidol Lactate 5 mg 07/21/17 17:42 Haldol IM Q4 PRN Agitation, Unable to Take PO Lactic Acid 1 ea 07/22/17 11:49 Lac-Hydrin 12% Cream (140 G) TOP BID [place] Lorazepam 2 mg 07/21/17 17:42 Ativan IM Q4 PRN Anxiety/Agitation,Unable PO Lorazepam 2 mg 07/21/17 17:42 Ativan PO Q4 PRN Anxiety/Agitation Losartan Potassium 25 mg 07/23/17 09:00 Cozaar PO DAILY [place] Magnesium Hydroxide 30 ml 07/21/17 17:42 Milk Of Magnesia PO HS PRN Constipation Metformin HCl 1,000 mg 07/23/17 08:00 Glucophage PO BRK [place] Olanzapine 10 mg 07/22/17 22:00 Zyprexa PO HS [place] Pantoprazole Sodium 40 mg 07/23/17 09:00 Protonix Ec Tab PO DAILY [facility] Past Psychiatric History - Past Psychiatric History Explanation of prior treatment: pt has unspecified number of psychiatric hospitalizations due to depression, and psychotic symptoms, history of noncompliance History of Abuse: denied History of ETOH/Drug Use: hx of alcohol and cocaine use Pertinent Medical Hx (Current Medical&Sleep Prob, Allergies): Allergies Allergy/AdvReac Type Severity Reaction Status Date / Time No Known Allergies Allergy Verified 07/21/17 11:35 Aspirin [Ecotrin] 81 mg PO DAILY #30 01/29/17 Atorvastatin [Lipitor] 10 mg PO DAILY #30 tab 01/29/17 Losartan [Cozaar] 25 mg PO DAILY #30 tab 01/29/17 MetFORMIN [glucoPHAGE] 1,000 mg PO BRK #30 tab 01/29/17 Atorvastatin [Lipitor] 10 mg PO HS tab 05/28/17 Fenofibrate [Tricor] 145 mg PO DAILY tab 05/28/17 Losartan [Cozaar] 25 mg PO DAILY tab 05/28/17 MetFORMIN [glucoPHAGE] 1,000 mg PO BIDWM tab 05/28/17 OLANZapine [Zyprexa] 20 mg PO HS 30 Days #60 tab 05/28/17 Pantoprazole [Protonix EC Tab] 40 mg PO DAILY ect 05/28/17 Sertraline [Zoloft] 50 mg PO DAILY 30 Days #30 tab 05/28/17 Mental Status Examination - Personal Presentation Personal Presentation: Looks older than stated age Additional comments: unkempt, in hospital gown - Affect Affect: Constricted, Depressed - Motor Activity Motor Activity: Psychomotor Retardation - Reliability in Providing Information Reliability in Providing Information: Poor, due to alteration in thoughts, Poor , due to altered mood - Speech Speech: Tangential - Mood Mood: Depressed, Anxious - Formal Thought Process Formal Thought Process: Hallucinations, Paranoia, Circumstantial Additional comments: reported non command auditory hallucinations - Hallucinations/Delusions Hallucinations: Auditory - Obsessions/Compulsions Obsessions: No Compulsions: No - Cognitive Functions Orientation: Person, Place Attention/Concentration: Easily distracted Abstract Thinking: [place] Estimate of Intelligence: Below average Judgement: Imparied, as evidence by: Poor judgement, Imparied, as evidence by: Lack of insight into illness Memory: Recent intact, as evidence by: Ability to recall events of the day - Risk Risk: Withdrawal, Diminished functioning - Strength & Assets Inventory Strength & Assets Inventory: Life experience - Limitations Additional comments: non compliance DSM 5 DX - DSM 5 DSM 5 Diagnosis: schizoaffective disorder cocaine induced psychotic disorder cocaine use disorder - Recommended/Plan of Treatment Treatment Recommendations and Plan of Treatment: increase zyprexa to 10mg qhs lexapro for depression 5mg uptitrate gradually motivational, group and supportive therapy Projected ELOS: 7 days Prognosis: guarded Discharge Plan and Discharge Criteria: pt no longer psychotic
[2017-07-22] MEDS: Ammonium Lactate 12% Cream (140 g) TOP SCH ×2 (18:15→18:23)
--- NOTE | 2017-07-23 07:44 | CP.PCM.PN ---
Subjective - Date & Time of Evaluation Date of Evaluation: 07/23/17 Time of Evaluation: 07:48 - Subjective Subjective: Patient seen and examined at bedside with attending-Dr. Fang. Awake, alert, ambulating in room without difficulty. Reports he had one episode of non- bilious vomiting yesterday evening after dinner, but felt better today and was able to tolerate breakfast. Denies chest pain, weakness, dizziness or nausea. Objective - Vital Signs/Intake and Output Vital Signs (last 24 hours): Temp Pulse Resp BP Pulse Ox 97.9 F 100 H 18 132/90 99 07/22/17 17:00 07/22/17 17:00 07/22/17 17:00 07/22/17 17:00 07/21/17 16:55 - Medications Medications: Current Medications Acetaminophen (Tylenol 325mg Tab) 650 mg PO Q4 PRN PRN Reason: Pain, moderate (4-7) Al Hydrox/Mg Hydrox/Simethicone (Maalox Plus 30 Ml) 30 ml PO Q4 PRN PRN Reason: Dyspepsia Aspirin (Ecotrin) 81 mg PO DAILY [facility] Atorvastatin Calcium (Lipitor) 10 mg PO HS [facility] Last Admin: 07/22/17 21:21 Dose: 10 mg Diphenhydramine HCl (Benadryl) 50 mg IM Q6 PRN PRN Reason: Extrapyramidal S/S Unable PO Diphenhydramine HCl (Benadryl) 50 mg PO Q6 PRN PRN Reason: Extrapyramidal Symptoms Haloperidol (Haldol) 5 mg PO Q4 PRN PRN Reason: Agitation Haloperidol Lactate (Haldol) 5 mg IM Q4 PRN PRN Reason: Agitation, Unable to Take PO Lactic Acid (Lac-Hydrin 12% Cream (140 G)) 1 ea TOP BID [facility] Last Admin: 07/22/17 18:23 Dose: 1 u Lorazepam (Ativan) 2 mg IM Q4 PRN PRN Reason: Anxiety/Agitation,Unable PO Lorazepam (Ativan) 2 mg PO Q4 PRN PRN Reason: Anxiety/Agitation Losartan Potassium (Cozaar) 25 mg PO DAILY [place] Magnesium Hydroxide (Milk Of Magnesia) 30 ml PO HS PRN PRN Reason: Constipation Metformin HCl (Glucophage) 1,000 mg PO BRK [place] Olanzapine (Zyprexa) 10 mg PO HS [facility] Last Admin: 07/22/17 21:21 Dose: 10 mg Pantoprazole Sodium (Protonix Ec Tab) 40 mg PO DAILY [facility] - Labs Labs: 07/21/17 14:36 07/21/17 14:36 - Constitutional Appears: No Acute Distress - Head Exam Head Exam: ATRAUMATIC, NORMOCEPHALIC - Eye Exam Eye Exam: EOMI - ENT Exam ENT Exam: Mucous Membranes Moist - Neck Exam Neck Exam: Full ROM - Respiratory Exam Respiratory Exam: NORMAL BREATHING PATTERN - Cardiovascular Exam Cardiovascular Exam: REGULAR RHYTHM, +S1, +S2 - GI/Abdominal Exam GI & Abdominal Exam: Soft, Normal Bowel Sounds. absent: Tenderness - Extremities Exam Extremities Exam: Full ROM. absent: Pedal Edema - Neurological Exam Neurological Exam: Alert, Awake, CN II-XII Intact, Normal Gait - Psychiatric Exam Psychiatric exam: Normal Affect, Normal Mood - Skin Skin Exam: Dry, Normal Color, Warm Assessment and Plan - Assessment and Plan (Free Text) Assessment: 41 yr old M with PMHx of HTN, prediabetes, hypercholesterolemia, bipolar disorder, depression, schizophrenia and cocaine abuse admitted to psych for treatment of depression, suicidal ideation, cocaine induced psychotic disorder. 1. Bipolar disorder/depression/schizophrenia -chronic, stable -patient admitted to psych unit -medication management as per psych 2. HTN -chronic, controlled -continue home medications: Losartan 25 mg PO QD, ASA 81 mg PO QD 3. Prediabetes -chronic, controlled -07/22/17: HbA1c 5.1, lipid panel: cholesterol 162, triglycerides 112, LDL 50, HDL 84 -continue home meds: Metformin 1,000 mg PO with BRK, Lipitor 10mg PO QHS 4. DVT prophylaxis -Lovenox 40 mg SC QD
[2017-07-23] MEDS: Pantoprazole 40 mg EC Tab PO SCH (09:23)
[2017-07-23] MEDS: Ammonium Lactate 12% Cream (140 g) TOP SCH ×2 (09:24→21:06)
[2017-07-23] MEDS: Enoxaparin 40 mg Syringe SC SCH (14:14)
--- NOTE | 2017-07-23 15:54 | PCM.PYCHPN ---
Psychiatric Progress Note - Psychiatric Progress Note Patient seen today, length of contact: pt evaluated discussed with team chart reviewed Patient Chief Complaint: iI want to go to inpatient rehab in [place] Problems Identified/Issues Discussed: pt on evaluation presenting with depressed mood and affect, unkempt, reported experiencing non command audiory hallucinations pt showing some insight into his illness, agrees about the negative impact of cocaine on his well being, agreed to join inpatient rehab on discharge denied any current suicidal or homicidal ideations denied perceptual disturbances no reported side effects of medications Medical Problems: pt has unspecified number of psychiatric hospitalizations due to depression, and psychotic symptoms, history of noncompliance DSM 5 Symptoms Update: schizoaffective disorder cocaine use disorder Medication Change: Yes (increase zyprexa) Medical Record Reviewed: Yes Mental Status Examination - Cognitive Function Orientation: Person, Place Attention: WNL Concentration: WNL Association: WNL Fund of Knowledge: Poor Decription of patient's judgement and insights: partial insight , poor judgment - Mood Mood: Depressed, Anxious - Affect Affect: Constricted, Depressed - Formal Thought Process Formal Thought Process: Hallucinations, Paranoia, Circumstantial Psychotic Thoughts and Behaviors: pt reported non command auditory hallucinations - Suicidal Ideation Suicidal Ideation: No - Homicidal Ideation Homicidal Ideation: No Goal/Treatment Plan - Goal/Treatment Plan Need for Continued Stay: Discharge may exacerbated symptoms Progress Toward Problem(s) and Goals/Treatment Plan: increase zyprexa to 15mg qhs lexapro for depression 5mg uptitrate gradually motivational, group and supportive therapy Estimated Date of D/C: 07/30/17
[2017-07-24] MEDS: Pantoprazole 40 mg EC Tab PO SCH (09:56)
[2017-07-24] MEDS: Ammonium Lactate 12% Cream (140 g) TOP SCH ×2 (09:57→17:54)
[2017-07-24] MEDS: Enoxaparin 40 mg Syringe SC SCH (17:56)
--- NOTE | 2017-07-24 19:19 | PCM.PYCHPN ---
Psychiatric Progress Note - Psychiatric Progress Note Patient seen today, length of contact: pt evaluated discussed with team chart reviewed Patient Chief Complaint: came to hospital was feeling down, had used heroin, reportedly accidently overdosed was taken to [facility]-reports family and financial stressors. recent reported relapse heroin intranasal denies current s/s w/d. reports that has been spending increased time in bed, believes feeling depressed-previously reportedly was on anti depressant. reports feeling tired in am difficulty to come out of room. reports decreased appetite. pt refused lovenox today Problems Identified/Issues Discussed: alteration in mood alteration in coping Medical Problems: per chart Diagnostic Results: per psychiatry per medicine per nursing per social work DSM 5 Symptoms Update: reports increased feeling of depression with decreased appetite Medication Change: No (decrease zyprexa to 10mg and start remeron 7.5mg po hs, abilify 5mg am po) Medical Record Reviewed: Yes Consults ordered or reviewed: pt being followed by hospitalist Mental Status Examination - Cognitive Function Orientation: Person, Place Attention: WNL Concentration: WNL Association: WNL Fund of Knowledge: Poor Decription of patient's judgement and insights: impaired - Mood Mood: Depressed, Anxious - Affect Affect: Constricted, Depressed - Formal Thought Process Formal Thought Process: Hallucinations, Paranoia, Circumstantial - Homicidal Ideation Homicidal Ideation: No Goal/Treatment Plan - Goal/Treatment Plan Need for Continued Stay: Discharge may exacerbated symptoms Progress Toward Problem(s) and Goals/Treatment Plan: inpt milieu decrease zyprexa to 10mg po hs start remeron 7.5mg po hs -attempt to titrate up per response mood and appetite start abilify 5mg po am pt denies being on before requests to start will attempt gradual cross titraation per response and side effects discharge planning in progress Estimated Date of D/C: 07/30/17 - Smoking Cessation Smoking Cessation Initiated: No Reason for not providing: defers
[2017-07-25] MEDS: Pantoprazole 40 mg EC Tab PO SCH (08:50)
[2017-07-25] MEDS: Ammonium Lactate 12% Cream (140 g) TOP SCH ×2 (08:52→17:49)
[2017-07-25] MEDS: Enoxaparin 40 mg Syringe SC SCH (08:57)
--- NOTE | 2017-07-25 19:08 | PCM.PYCHPN ---
Psychiatric Progress Note - Psychiatric Progress Note Patient seen today, length of contact: pt evaluated discussed with team chart reviewed Patient Chief Complaint: reports with zyprexa 10mg po hs and mirtazepine 7.5mg po hs-slept improved with abilify 5mg po am-felt more awake less time in bed reports feel more alert came to hospital was feeling down, had used heroin, reportedly accidently overdosed was taken to [facility]-reports family and financial stressors. recent reported relapse heroin intranasal denies current s/s w/d. reports that has been spending increased time in bed, believes feeling depressed-previously reportedly was on anti depressant. reports feeling tired in am difficulty to come out of room. reports decreased appetite. pt refused lovenox today Problems Identified/Issues Discussed: alteration in mood alteration in coping altercation in sleep Medical Problems: per chart Diagnostic Results: per psychiatry per medicine per nursing per social work DSM 5 Symptoms Update: alteration in sleep, mood, cognition Medication Change: Yes ([id number] ) Medical Record Reviewed: Yes Consults ordered or reviewed: pt being followed by hospitalist Mental Status Examination - Cognitive Function Orientation: Person, Place Attention: WNL Concentration: WNL Association: WNL Fund of Knowledge: Poor Decription of patient's judgement and insights: impaired - Mood Mood: Depressed, Anxious - Affect Affect: Constricted, Depressed - Formal Thought Process Formal Thought Process: Hallucinations, Paranoia, Circumstantial - Suicidal Ideation Suicidal Ideation: No - Homicidal Ideation Homicidal Ideation: No Goal/Treatment Plan - Goal/Treatment Plan Need for Continued Stay: Discharge may exacerbated symptoms Progress Toward Problem(s) and Goals/Treatment Plan: inpt milieu decrease zyprexa to 5mg po hs start remeron 15mg po hs -attempt to titrate up per response mood and appetite start abilify 10mg po am pt denies being on before requests to start will attempt gradual cross titration per response and side effects decrease zyprexa increase abilify-reports feeling less tired during day discharge planning in progress Estimated Date of D/C: 07/30/17 - Smoking Cessation Smoking Cessation Initiated: No Reason for not providing: pt defers
[2017-07-26] MEDS: Pantoprazole 40 mg EC Tab PO SCH (08:42)
[2017-07-26] MEDS: Ammonium Lactate 12% Cream (140 g) TOP SCH ×2 (08:42→17:18)
[2017-07-26] MEDS: Enoxaparin 40 mg Syringe SC SCH (08:43)
--- NOTE | 2017-07-26 16:46 | PCM.PYCHPN ---
Psychiatric Progress Note - Psychiatric Progress Note Patient seen today, length of contact: pt evaluated discussed with team chart reviewed Patient Chief Complaint: iI am still depressed, I want to go to a rehab Problems Identified/Issues Discussed: pt on evaluation presenting with depressed mood and affect, needs encouragement to attend groups reported continues to experience non command hallucinations, no reported side effects of abilify denied suicidal or homicidal ideations Medical Problems: pt has unspecified number of psychiatric hospitalizations due to depression, and psychotic symptoms, history of noncompliance DSM 5 Symptoms Update: schizoaffective disorder Medication Change: No Medical Record Reviewed: Yes Mental Status Examination - Cognitive Function Orientation: Person, Place Attention: WNL Concentration: WNL Association: WNL Fund of Knowledge: Poor - Mood Mood: Depressed, Anxious - Affect Affect: Constricted, Depressed - Formal Thought Process Formal Thought Process: Hallucinations, Paranoia, Circumstantial Psychotic Thoughts and Behaviors: reported non command auditory hallucinations - Suicidal Ideation Suicidal Ideation: No - Homicidal Ideation Homicidal Ideation: No Goal/Treatment Plan - Goal/Treatment Plan Need for Continued Stay: Discharge may exacerbated symptoms Progress Toward Problem(s) and Goals/Treatment Plan: increase abilify gradually and monitor pt for psychopharmacological effects and side effect profile motivational, group and supportive therapy Estimated Date of D/C: 07/30/17
[2017-07-27] MEDS: Pantoprazole 40 mg EC Tab PO SCH (08:55)
[2017-07-27] MEDS: Ammonium Lactate 12% Cream (140 g) TOP SCH ×2 (09:00→19:13)
[2017-07-27] MEDS: Enoxaparin 40 mg Syringe SC SCH (09:01)
--- NOTE | 2017-07-27 12:44 | PCM.PYCHPN ---
Psychiatric Progress Note - Psychiatric Progress Note Patient seen today, length of contact: pt evaluated discussed with team chart reviewed Patient Chief Complaint: I still hear voices and I cannot sleep well Problems Identified/Issues Discussed: pt on evaluation reported poor sleep with early insomnia, continues to have non command auditory hallucinations, isolative in his room, needs encouragement to attend groups, no reported changes in appetite no reported side effects of abilify denied suicidal or homicidal ideations Medical Problems: pt has unspecified number of psychiatric hospitalizations due to depression, and psychotic symptoms, history of noncompliance DSM 5 Symptoms Update: schizoaffective disorder cocaine use disorder Medication Change: Yes (increase abilify start trazdone) Medical Record Reviewed: Yes Mental Status Examination - Cognitive Function Orientation: Person, Place Attention: WNL Concentration: WNL Association: WNL Fund of Knowledge: Poor - Mood Mood: Depressed, Anxious - Affect Affect: Constricted, Depressed - Formal Thought Process Formal Thought Process: Hallucinations, Paranoia, Circumstantial Psychotic Thoughts and Behaviors: reported non command auditory hallucinations - Suicidal Ideation Suicidal Ideation: No - Homicidal Ideation Homicidal Ideation: No Goal/Treatment Plan - Goal/Treatment Plan Need for Continued Stay: Discharge may exacerbated symptoms Progress Toward Problem(s) and Goals/Treatment Plan: increase abilify to 20mg daily, start trazdone 50mg qhs, continue with remeron monitor pt for psychopharmacological effects and side effect profile motivational, group and supportive therapy Estimated Date of D/C: 07/30/17
--- NOTE | 2017-07-27 17:04 | CP.PCM.PN ---
Subjective - Date & Time of Evaluation Date of Evaluation: 07/27/17 Time of Evaluation: 11:50 - Subjective Subjective: Patient seen and examined at bedside with attending-Dr. Fang. Patient reports he could not sleep well last night, feels slightly better than when he was admitted, other shepherd he is tolerating PO diet, ambulating without difficulty, no complaints at this time. Denies suicidal or homicidal ideations. Objective - Vital Signs/Intake and Output Vital Signs (last 24 hours): Temp Pulse Resp BP Pulse Ox 97.9 F 93 H 20 125/73 99 07/27/17 09:00 07/27/17 09:00 07/27/17 09:00 07/27/17 09:00 07/21/17 16:55 - Medications Medications: Current Medications Acetaminophen (Tylenol 325mg Tab) 650 mg PO Q4 PRN PRN Reason: Pain, moderate (4-7) Al Hydrox/Mg Hydrox/Simethicone (Maalox Plus 30 Ml) 30 ml PO Q4 PRN PRN Reason: Dyspepsia Aripiprazole (Abilify) 20 mg PO DAILY [facility] Aspirin (Ecotrin) 81 mg PO DAILY [facility] Last Admin: 07/27/17 08:55 Dose: 81 mg Atorvastatin Calcium (Lipitor) 10 mg PO HS [facility] Last Admin: 07/26/17 21:21 Dose: 10 mg Diphenhydramine HCl (Benadryl) 50 mg IM Q6 PRN PRN Reason: Extrapyramidal S/S Unable PO Diphenhydramine HCl (Benadryl) 50 mg PO Q6 PRN PRN Reason: Extrapyramidal Symptoms Haloperidol (Haldol) 5 mg PO Q4 PRN PRN Reason: Agitation Haloperidol Lactate (Haldol) 5 mg IM Q4 PRN PRN Reason: Agitation, Unable to Take PO Lactic Acid (Lac-Hydrin 12% Cream (140 G)) 1 ea TOP BID [facility] Last Admin: 07/27/17 09:00 Dose: 1 % Lorazepam (Ativan) 2 mg IM Q4 PRN PRN Reason: Anxiety/Agitation,Unable PO Lorazepam (Ativan) 2 mg PO Q4 PRN PRN Reason: Anxiety/Agitation Losartan Potassium (Cozaar) 25 mg PO DAILY [facility] Last Admin: 07/27/17 08:56 Dose: 25 mg Magnesium Hydroxide (Milk Of Magnesia) 30 ml PO HS PRN PRN Reason: Constipation Metformin HCl (Glucophage) 1,000 mg PO BRK [facility] Last Admin: 07/27/17 08:55 Dose: 1,000 mg Mirtazapine (Remeron) 15 mg PO HS [facility] Last Admin: 07/26/17 21:20 Dose: 15 mg Pantoprazole Sodium (Protonix Ec Tab) 40 mg PO DAILY [facility] Last Admin: 07/27/17 08:55 Dose: 40 mg Trazodone HCl (Desyrel) [address] [facility] - Labs Labs: 07/21/17 14:36 07/21/17 14:36 - Constitutional Appears: Non-toxic - Head Exam Head Exam: ATRAUMATIC, NORMOCEPHALIC - Eye Exam Eye Exam: EOMI - ENT Exam ENT Exam: Mucous Membranes Moist - Respiratory Exam Respiratory Exam: Clear to Ausculation Bilateral, NORMAL BREATHING PATTERN - Cardiovascular Exam Cardiovascular Exam: REGULAR RHYTHM, +S1, +S2 - GI/Abdominal Exam GI & Abdominal Exam: Soft, Normal Bowel Sounds - Extremities Exam Extremities Exam: Full ROM. absent: Pedal Edema - Neurological Exam Neurological Exam: Alert, Awake, CN II-XII Intact - Psychiatric Exam Psychiatric exam: Normal Affect, Normal Mood - Skin Skin Exam: Dry, Normal Color, Warm Assessment and Plan - Assessment and Plan (Free Text) Assessment: 41 yr old M with PMHx of HTN, prediabetes, hypercholesterolemia, bipolar disorder, depression, schizophrenia and cocaine abuse admitted to psych for treatment of depression, suicidal ideation, cocaine induced psychotic disorder. 1. Bipolar disorder/depression/schizophrenia -chronic, stable -patient admitted to psych unit -medications have been adjusted as per psych (increased abilify, start trazodone ) 2. HTN -chronic, controlled -continue home medications: Losartan 25 mg PO QD, ASA 81 mg PO QD 3. Prediabetes -chronic, controlled -07/22/17: HbA1c 5.1, lipid panel: cholesterol 162, triglycerides 112, LDL 50, HDL 84 -continue home meds: Metformin 1,000 mg PO with BRK, Lipitor 10mg PO QHS 4. DVT prophylaxis -discontinued Lovenox 40 mg SC QD-patient has been refusing, patient is ambulating frequently
[2017-07-28] MEDS: Pantoprazole 40 mg EC Tab PO SCH (12:48)
[2017-07-28] MEDS: Ammonium Lactate 12% Cream (140 g) TOP SCH ×2 (12:50→16:57)
--- NOTE | 2017-07-28 12:58 | RAD ---
HISTORY: rule out TB COMPARISON: 07/21/2017. FINDINGS: LUNGS: The lungs are well inflated and clear. PLEURA: No significant pleural effusion identified, no pneumothorax apparent. CARDIOVASCULAR: Normal. OSSEOUS STRUCTURES: No significant abnormalities. VISUALIZED UPPER ABDOMEN: Normal. OTHER FINDINGS: None. IMPRESSION: No active pulmonary disease.
--- NOTE | 2017-07-28 14:43 | PCM.PYCHPN ---
Psychiatric Progress Note - Psychiatric Progress Note Patient seen today, length of contact: pt evaluated discussed with team chart reviewed Patient Chief Complaint: I still hear voices and I cannot sleep well Problems Identified/Issues Discussed: pt on evaluation reported poor sleep with early insomnia, continues to have non command auditory hallucinations, isolative in his room, partially compliant with medication, showing limited insight into his illness needs encouragement to attend groups, no reported changes in appetite no reported side effects of abilify denied suicidal or homicidal ideations Medical Problems: pt has unspecified number of psychiatric hospitalizations due to depression, and psychotic symptoms, history of noncompliance DSM 5 Symptoms Update: cocaine abuse schizoaffective disorder Medication Change: Yes (increase t trazdone) Medical Record Reviewed: Yes Mental Status Examination - Cognitive Function Orientation: Person, Place Attention: WNL Concentration: WNL Association: WNL Fund of Knowledge: Poor - Mood Mood: Depressed, Anxious - Affect Affect: Constricted, Depressed - Formal Thought Process Formal Thought Process: Hallucinations, Paranoia, Circumstantial Psychotic Thoughts and Behaviors: reported non command auditory hallucinations - Suicidal Ideation Suicidal Ideation: No - Homicidal Ideation Homicidal Ideation: No Goal/Treatment Plan - Goal/Treatment Plan Need for Continued Stay: Discharge may exacerbated symptoms Progress Toward Problem(s) and Goals/Treatment Plan: increase abilify to 20mg daily,increase trazdone to 100mg qhs, continue with remeron 7.5 mg monitor pt for psychopharmacological effects and side effect profile motivational, group and supportive therapy Estimated Date of D/C: 07/30/17
--- NOTE | 2017-07-28 16:41 | CP.PCM.PN ---
Subjective - Date & Time of Evaluation Date of Evaluation: 07/28/17 Time of Evaluation: 10:00 - Subjective Subjective: Patient seen and examined at bedside with attending-Dr. Fang. Awake, alert, ambulating without difficulty. Reports he feels very tired today because he could not sleep last night. Auditory hallucinations persist. Otherwise is tolerating PO diet, has normal urine and stool output. Objective - Vital Signs/Intake and Output Vital Signs (last 24 hours): Temp Pulse Resp BP Pulse Ox 97 F L 99 H 20 112/75 99 07/28/17 09:00 07/28/17 12:49 07/28/17 09:00 07/28/17 12:49 07/21/17 16:55 - Medications Medications: Current Medications Acetaminophen (Tylenol 325mg Tab) 650 mg PO Q4 PRN PRN Reason: Pain, moderate (4-7) Al Hydrox/Mg Hydrox/Simethicone (Maalox Plus 30 Ml) 30 ml PO Q4 PRN PRN Reason: Dyspepsia Aripiprazole (Abilify) 20 mg PO DAILY [facility] Last Admin: 07/28/17 12:49 Dose: 20 mg Aspirin (Ecotrin) 81 mg PO DAILY [facility] Last Admin: 07/28/17 12:50 Dose: 81 mg Atorvastatin Calcium (Lipitor) 10 mg PO HS [facility] Last Admin: 07/27/17 21:15 Dose: 10 mg Diphenhydramine HCl (Benadryl) 50 mg IM Q6 PRN PRN Reason: Extrapyramidal S/S Unable PO Diphenhydramine HCl (Benadryl) 50 mg PO Q6 PRN PRN Reason: Extrapyramidal Symptoms Haloperidol (Haldol) 5 mg PO Q4 PRN PRN Reason: Agitation Haloperidol Lactate (Haldol) 5 mg IM Q4 PRN PRN Reason: Agitation, Unable to Take PO Lactic Acid (Lac-Hydrin 12% Cream (140 G)) 1 ea TOP BID [facility] Last Admin: 07/28/17 12:50 Dose: Not Given Lorazepam (Ativan) 2 mg IM Q4 PRN PRN Reason: Anxiety/Agitation,Unable PO Lorazepam (Ativan) 2 mg PO Q4 PRN PRN Reason: Anxiety/Agitation Losartan Potassium (Cozaar) 25 mg PO DAILY [facility] Last Admin: 07/28/17 12:49 Dose: 25 mg Magnesium Hydroxide (Milk Of Magnesia) 30 ml PO HS PRN PRN Reason: Constipation Metformin HCl (Glucophage) 1,000 mg PO BRK [facility] Last Admin: 07/28/17 12:49 Dose: 1,000 mg Mirtazapine (Remeron) 7.5 mg PO HS [facility] Pantoprazole Sodium (Protonix Ec Tab) 40 mg PO DAILY [facility] Last Admin: 07/28/17 12:48 Dose: 40 mg Trazodone HCl (Desyrel) 100 mg PO HS [facility] - Labs Labs: 07/21/17 14:36 07/21/17 14:36 - Constitutional Appears: No Acute Distress - Head Exam Head Exam: ATRAUMATIC, NORMOCEPHALIC - Eye Exam Eye Exam: EOMI - ENT Exam ENT Exam: Mucous Membranes Moist - Respiratory Exam Respiratory Exam: NORMAL BREATHING PATTERN - Cardiovascular Exam Cardiovascular Exam: REGULAR RHYTHM, +S1, +S2 - GI/Abdominal Exam GI & Abdominal Exam: Soft, Normal Bowel Sounds - Extremities Exam Extremities Exam: Full ROM. absent: Pedal Edema - Neurological Exam Neurological Exam: Alert, Awake, CN II-XII Intact - Psychiatric Exam Psychiatric exam: Normal Affect, Normal Mood - Skin Skin Exam: Dry, Warm Assessment and Plan - Assessment and Plan (Free Text) Assessment: 41 yr old M with PMHx of HTN, prediabetes, hypercholesterolemia, bipolar disorder, depression, schizophrenia and cocaine abuse admitted to psych for treatment of depression, suicidal ideation, cocaine induced psychotic disorder. 1. Bipolar disorder/depression/schizophrenia -chronic, stable -patient admitted to psych unit -medications have been adjusted as per psych (increased abilify, start trazodone , remeron) 2. HTN -chronic, controlled -continue home medications: Losartan 25 mg PO QD, ASA 81 mg PO QD 3. Prediabetes -chronic, controlled -07/22/17: HbA1c 5.1, lipid panel: cholesterol 162, triglycerides 112, LDL 50, HDL 84 -continue home meds: Metformin 1,000 mg PO with BRK, Lipitor 10mg PO QHS 4. DVT prophylaxis -discontinued Lovenox 40 mg SC QD-patient has been refusing, patient is ambulating frequently
[2017-07-28 21:00] LABS: HEPATITIS B SURFACE AG NEGATIVE (NEGATIVE)
[2017-07-28 21:06] LABS: HEPATITIS A IGM NEGATIVE (NEGATIVE); HEPATITIS B CORE AB Negative (NEGATIVE)
[2017-07-28 21:17] LABS: HEPATITIS C ANTIBODY Negative (NEGATIVE)
[2017-07-29] MEDS: Pantoprazole 40 mg EC Tab PO SCH (09:22)
[2017-07-29] MEDS: Ammonium Lactate 12% Cream (140 g) TOP SCH ×2 (09:25→17:04)
--- NOTE | 2017-07-29 12:34 | PCM.PYCHPN ---
Psychiatric Progress Note - Psychiatric Progress Note Patient seen today, length of contact: pt evaluated discussed with team chart reviewed Patient Chief Complaint: It am getting better Problems Identified/Issues Discussed: pt on evaluation reported , feeling less depressed and less anxious, pt ativan has been discontinued reported clearing of the auditory hallucinations, denied any current side effects of medications denied any current suicidal or homicidal ideations Medical Problems: pt has unspecified number of psychiatric hospitalizations due to depression, and psychotic symptoms, history of noncompliance DSM 5 Symptoms Update: schizophrenia cocaine use disorder Medication Change: Yes (discontinue remeron) Medical Record Reviewed: Yes Mental Status Examination - Cognitive Function Orientation: Person, Place Attention: WNL Concentration: WNL Association: WNL Fund of Knowledge: Poor - Mood Mood: Neutral - Affect Affect: Constricted - Speech Speech: Appropriate - Formal Thought Process Formal Thought Process: Circumstantial Psychotic Thoughts and Behaviors: rpt denied any current perceptual disturbances, non elicited - Suicidal Ideation Suicidal Ideation: No - Homicidal Ideation Homicidal Ideation: No Goal/Treatment Plan - Goal/Treatment Plan Need for Continued Stay: Discharge may exacerbated symptoms Progress Toward Problem(s) and Goals/Treatment Plan: discontinue ativan continue with abilify 20mg daily,and trazdone 100mg qhs, discontinue remeron monitor pt for psychopharmacological effects and side effect profile motivational, group and supportive therapy Estimated Date of D/C: 07/30/17
[2017-07-30] MEDS: Pantoprazole 40 mg EC Tab PO SCH (08:28)
[2017-07-30] MEDS: Ammonium Lactate 12% Cream (140 g) TOP SCH ×2 (08:29→18:49)
--- NOTE | 2017-07-30 14:06 | PCM.PYCHPN ---
Psychiatric Progress Note - Psychiatric Progress Note Patient seen today, length of contact: pt evaluated discussed with team chart reviewed Patient Chief Complaint: I am very depressed , they told me yesterday I lost my appartment Problems Identified/Issues Discussed: pt on evaluation reported , feeling depressed and anxious, about loosing his appartment discussed with pt the negative impact of cocaine on his life, pt currently motivated to join inpatient rehab reported clearing of the auditory hallucinations, denied any current side effects of medications denied any current suicidal or homicidal ideations pt is currently a risk for relapse, awaiting transfer to inpatient rehab Medical Problems: pt has unspecified number of psychiatric hospitalizations due to depression, and psychotic symptoms, history of noncompliance DSM 5 Symptoms Update: schizoaffective disorder cocaine use disorder Medication Change: Yes (discontinue remeron) Medical Record Reviewed: Yes Mental Status Examination - Cognitive Function Orientation: Person, Place Attention: WNL Concentration: WNL Association: WNL Fund of Knowledge: Poor - Mood Mood: Neutral - Affect Affect: Constricted - Speech Speech: Appropriate - Formal Thought Process Formal Thought Process: Circumstantial Psychotic Thoughts and Behaviors: rpt denied any current perceptual disturbances, non elicited - Suicidal Ideation Suicidal Ideation: No - Homicidal Ideation Homicidal Ideation: No Goal/Treatment Plan - Goal/Treatment Plan Need for Continued Stay: Discharge may exacerbated symptoms Progress Toward Problem(s) and Goals/Treatment Plan: discontinue ativan continue with abilify 20mg daily,and trazdone 100mg qhs, monitor pt for psychopharmacological effects and side effect profile motivational, group and supportive therapy Estimated Date of D/C: 07/30/17
--- NOTE | 2017-07-30 14:21 | PCM.BM ---
<Vince Ames - Last Filed: 07/30/17 14:17> Treatment Plan Problems - Problems identified on initial assessmt Medication nonadherence Date Initiated: 07/21/17 Time Initiated: 20:02 Assessment reference: NA Status: Active Command Auditory Hallucinations Date Initiated: 07/21/17 Time Initiated: 20:03 Assessment reference: NA Status: Active Treatment assets and liabiliti Patient Assests: adapts well, cooperative, self-reliant, ADL independent, physically healthy, negotiates basic needs, good past tx response, financial stabiity Patient Liabilities: poor support system, substance abuse - Milieu Protocol Maintain good personal hygiene: daily Encourage regular showers, daily Remind patient to perform daily oral care, daily Assist patient to perform ADL's Maintain personal safety: daily Educate patient to report safety concerns to staff, daily Monitor environment for contraband/sharps, every shift Educate patient to report safety concerns to staff, every shift Monitor environment for contraband/sharps Medication safety: Monitor for expected outcome, potential side effects: daily, every shift, Assess barriers to learning: daily, every shift, Assess readiness for medication education: daily, every shift Milieu Narrative: discontinue ativan continue with abilify 20mg daily,and trazdone 100mg qhs, monitor pt for psychopharmacological effects and side effect profile motivational, group and supportive therapy Discharge/Continuing Care - Treatment Team Participation Patient/Family/SO Statement: discontinue ativan continue with abilify 20mg daily,and trazdone 100mg qhs, monitor pt for psychopharmacological effects and side effect profile motivational, group and supportive therapy Treatment Plan Review - Problem Medication nonadherence Time Initiated: 20:02 Command Auditory Hallucinations Time Initiated: : - Discharge / Continuing Care Discharge to:: [facility] Services: Residential treatment Health Needs: Alcohol/Drug treatment (Pt is still awaiting acceptance into a long-term treatment for cocaine and alcohol abuse. Pt is on the waiting list at [facility] and is still being reviewed by [facility]. Pt recently learned that he is going to be homeless at time of discharge and is very anxious to leave the hospital without a plan for secondary residential treatment. ) <Viridiana Kraus - Last Filed: 08/02/17 11:04> - Diagnosis (1) Schizoaffective disorder Status: Acute Interventions: psychotherapy pharmacotherapy 08/02/17 11:04
[2017-07-31] MEDS: Pantoprazole 40 mg EC Tab PO SCH (09:11)
[2017-07-31] MEDS: Ammonium Lactate 12% Cream (140 g) TOP SCH ×2 (09:15→17:41)
--- NOTE | 2017-07-31 10:42 | PCM.PYCHPN ---
Psychiatric Progress Note - Psychiatric Progress Note Patient seen today, length of contact: pt evaluated discussed with team chart reviewed Patient Chief Complaint: I feel anxious because I lost my appartment Problems Identified/Issues Discussed: pt on evaluation reported , feeling depressed and anxious, about loosing his appartment discussed with pt the negative impact of cocaine on his life, pt currently motivated to join inpatient rehab reported clearing of the auditory hallucinations, denied any current side effects of medications denied any current suicidal or homicidal ideations pt is currently a risk for relapse, awaiting transfer to inpatient rehab Medical Problems: pt has unspecified number of psychiatric hospitalizations due to depression, and psychotic symptoms, history of noncompliance DSM 5 Symptoms Update: schizoaffective disorder cocaine use disorder Medication Change: No Medical Record Reviewed: Yes Mental Status Examination - Cognitive Function Orientation: Person, Place Attention: WNL Concentration: WNL Association: WNL Fund of Knowledge: Poor Decription of patient's judgement and insights: impaired insight and poor judgment - Mood Mood: Neutral - Affect Affect: Constricted - Speech Speech: Appropriate - Formal Thought Process Formal Thought Process: Circumstantial Psychotic Thoughts and Behaviors: rpt denied any current perceptual disturbances, non elicited - Suicidal Ideation Suicidal Ideation: No - Homicidal Ideation Homicidal Ideation: No Goal/Treatment Plan - Goal/Treatment Plan Need for Continued Stay: Discharge may exacerbated symptoms Progress Toward Problem(s) and Goals/Treatment Plan: continue with abilify 20mg daily,and trazdone 100mg qhs, monitor pt for psychopharmacological effects and side effect profile motivational, group and supportive therapy Estimated Date of D/C: 08/03/17
[2017-08-01] MEDS: Ammonium Lactate 12% Cream (140 g) TOP SCH ×2 (09:09→17:21)
[2017-08-01] MEDS: Pantoprazole 40 mg EC Tab PO SCH (09:09)
--- NOTE | 2017-08-01 12:39 | PCM.PYCHPN ---
Psychiatric Progress Note - Psychiatric Progress Note Patient seen today, length of contact: pt evaluated discussed with team chart reviewed Patient Chief Complaint: I keep calling the rehab center every day Problems Identified/Issues Discussed: pt on evaluation reported , feeling less depressed, pt currently motivated to join inpatient rehab reported clearing of the auditory hallucinations, denied any current side effects of medications denied any current suicidal or homicidal ideations pt is currently a risk for relapse, awaiting transfer to inpatient rehab Medical Problems: pt has unspecified number of psychiatric hospitalizations due to depression, and psychotic symptoms, history of noncompliance DSM 5 Symptoms Update: cocaine induced mood disorder with depressive features cocaine use disorder Medication Change: No Medical Record Reviewed: Yes Mental Status Examination - Cognitive Function Orientation: Person, Place Attention: WNL Concentration: WNL Association: WNL Fund of Knowledge: Poor Decription of patient's judgement and insights: impaired insight and poor judgment - Mood Mood: Neutral - Affect Affect: Constricted - Speech Speech: Appropriate - Formal Thought Process Formal Thought Process: Circumstantial Psychotic Thoughts and Behaviors: rpt denied any current perceptual disturbances, non elicited - Suicidal Ideation Suicidal Ideation: No - Homicidal Ideation Homicidal Ideation: No Goal/Treatment Plan - Goal/Treatment Plan Need for Continued Stay: Discharge may exacerbated symptoms Progress Toward Problem(s) and Goals/Treatment Plan: continue with abilify 20mg daily,and trazdone 100mg qhs, monitor pt for psychopharmacological effects and side effect profile motivational, group and supportive therapy Estimated Date of D/C: 08/03/17
--- NOTE | 2017-08-02 11:07 | PCM.PYCHPN ---
Psychiatric Progress Note - Psychiatric Progress Note Patient seen today, length of contact: pt evaluated discussed with team chart reviewed Patient Chief Complaint: Zack motivated to start rehab Problems Identified/Issues Discussed: pt on evaluation reported , feeling less depressed, , affect brighter , pt more visibale on the unit and participating in treatment reported clearing of the auditory hallucinations, denied any current side effects of medications denied any current suicidal or homicidal ideations pt is currently a risk for relapse, awaiting transfer to inpatient rehab Medical Problems: pt has unspecified number of psychiatric hospitalizations due to depression, and psychotic symptoms, history of noncompliance DSM 5 Symptoms Update: cocaine induced psychotic disorder schizoaffective disorder Medication Change: No Medical Record Reviewed: Yes Mental Status Examination - Cognitive Function Orientation: Person, Place Attention: WNL Concentration: WNL Association: WNL Fund of Knowledge: Poor Decription of patient's judgement and insights: impaired insight and poor judgment - Mood Mood: Neutral - Affect Affect: Constricted - Speech Speech: Appropriate - Formal Thought Process Formal Thought Process: Circumstantial Psychotic Thoughts and Behaviors: rpt denied any current perceptual disturbances, non elicited - Suicidal Ideation Suicidal Ideation: No - Homicidal Ideation Homicidal Ideation: No Goal/Treatment Plan - Goal/Treatment Plan Need for Continued Stay: Discharge may exacerbated symptoms Progress Toward Problem(s) and Goals/Treatment Plan: continue with abilify 20mg daily,and trazdone 100mg qhs, monitor pt for psychopharmacological effects and side effect profile motivational, group and supportive therapy Estimated Date of D/C: 08/03/17
[2017-08-02] MEDS: Pantoprazole 40 mg EC Tab PO SCH (12:18)
[2017-08-02] MEDS: Ammonium Lactate 12% Cream (140 g) TOP SCH ×2 (12:21→17:12)
[2017-08-03 09:13] VITALS: PULSE 97; RESP 20; TEMP 97.7
[2017-08-03] MEDS: Pantoprazole 40 mg EC Tab PO SCH (09:34)
[2017-08-03] MEDS: Ammonium Lactate 12% Cream (140 g) TOP SCH (09:35)
[2017-08-03 10:07] VITALS: BP 122/72
--- NOTE | 2017-08-03 11:10 | PCM.PYCHDC ---
Mental Status Examination - Mental Status Examination Orientation: Person, Place Memory: Intact Mood: Neutral Affect: Broad Speech: Appropriate Attention: WNL Concentration: WNL Association: WNL Formal Thought Process: Circumstantial Description of patient's judgement and insight: impaired insight and poor judgment Psychotic Thoughts and Behaviors: pt denied any current perceptual disturbances, non elicited Suicidal Ideation: No Current Homicidal Ideation?: No Discharge Summary - Discharge Note Reason for Hospitalization: Pt is a 41 year-old, Male who was brought to the ED by his mental health worker, secondary to experiencing auditory hallucinations , commanding in nature as they are telling him to "kill himself." Pt stated he has not been compliant with medications for a month , relapsed on cocaine ,using excessive amounts started feeling increasingly] depressed and experiencing auditory command hallucinations reported decreased sleep and appetite, low energy , low motivation denied manic symptoms, denied homicidal ideations denied thoughts of self harm on the unit Consultations:: List each consultation separately and include: 1. Reason for request. 2. Findings. 3. Follow-up Summary of Hospital Course include:: 1. Description of specific treatment plan utilized for patients during their course of treatmen. 2. Summarize the time- course for resolution of acute symptoms and/or regressed behaviors. 3. Describe issues identified and worked on during hospitalization. 4. Describe medication utilized. 5. Describe medical problems identified and treated. 6. Reassessment of suicide risk Summary of Hospital Course: Pt on admission was started on abilify , it was uptitrated to 20mg pt was also started n trazdone for insomnia motivational, group andsupportive therapy provided pt was encouraged to attend groups, graduallly presented with brighter affect togehter with clearing off of the auditory halluciantions no reported side ffects of medications pt on discharge denied suicidal or homicidal ideations denied perceptual disturbances referral was made by secondary social studies teacher for inpatient rehab - Diagnosis (1) Schizoaffective disorder Current Visit: Yes Status: Acute - Final Diagnosis (DSM 5) Condition upon Discharge: STABLE DSM 5: schizoaffective disorder bipolar cocaine induced psychotic disorder with hallucinations cocaine use disorder Disposition: HOME/ ROUTINE Follow-up Treatment Plan: continue with abilify 20mg daily,and trazdone 100mg qhs, monitor pt for psychopharmacological effects and side effect profile motivational, group and supportive therapy Prescriptions/Medication Reconciliation: Ammonium Lactate 12% [Lac-Hydrin 12% Cream (140 g)] 1 ea TOP BID 14 Days #1 tube ARIPiprazole [Abilify] 20 mg PO DAILY 30 Days #60 tab Aspirin [Ecotrin] 81 mg PO DAILY 15 Days #15 tabec Atorvastatin [Lipitor] 10 mg PO HS 15 Days #15 tab Losartan [Cozaar] 25 mg PO DAILY 15 Days #15 tab MetFORMIN [glucoPHAGE] 1,000 mg PO BRK 15 Days #15 tab traZODone [Desyrel] 100 mg PO HS 30 Days #30 tab - Antipsychotic Medications Pt discharged on 2 or more routine antipsychotic medications: No
== END 2017-08-03 13:56 | disposition home or self-care (01) | DRG 430 ==
LOC: H.ER 10:50 → H.ERHOLD 15:51 → H.PSYCH 17:40
PROVIDERS: ADMIT Psychiatry & Neurology Psychiatry; ATTEND Psychiatry & Neurology Psychiatry
PROC: GZHZZZZ Group Psychotherapy (ICD-10-PCS; principal; 2017-07-21)
PROC: HZ57ZZZ Individual Psychotherapy for Substance Abuse Treatment, Motivational Enhancement (ICD-10-PCS; 2017-07-21)
PROC: HZ59ZZZ Individual Psychotherapy for Substance Abuse Treatment, Supportive (ICD-10-PCS; 2017-07-21)
PROC: 3E0234Z Introduction of Serum, Toxoid and Vaccine into Muscle, Percutaneous Approach (ICD-10-PCS; 2017-07-22)
DX: F25.0 Schizoaffective disorder, bipolar type (principal); R45.851 Suicidal ideations; F14.951 Cocaine use, unspecified with cocaine-induced psychotic disorder with hallucinations; Z91.14 Patient's other noncompliance with medication regimen; G47.00 Insomnia, unspecified; I10 Essential (primary) hypertension; Z23 Encounter for immunization; E78.00 Pure hypercholesterolemia, unspecified; F17.210 Nicotine dependence, cigarettes, uncomplicated; R73.03 Prediabetes

== ENCOUNTER 2017-08-20 03:36 | Inpatient (IN) | payer MEDICAID, OTHER ==
[2017-08-20 03:37] VITALS: BMI 25.8
[2017-08-20 04:02] VITALS: O2SAT 98
--- NOTE | 2017-08-20 04:08 | ED PDOC ---
HPI: Psych/Substance Abuse Time Seen by Provider: 08/20/17 03:45 Chief Complaint (Nursing): Psychiatric Evaluation Chief Complaint (Provider): Suicidal Ideation History Per: Patient History/Exam Limitations: no limitations Current Symptoms Are (Timing): Still Present Additional Complaint(s): Maurilio is a 41 y/o male with a history of schizophrenia and drug abuse who presents to the ED complaining of suicidal ideation and desire to cut himself. Patient states he's been off Abilify and Trazodone because he ran out of Trazadone and can't get Abilify due to insurance issues. He admits to using heroine and cocaine 2 days ago but denies drug use today. He denies homicidal ideation. PMD: None Provided Past Medical History Reviewed: Historical Data, Nursing Documentation, Vital Signs Vital Signs: Last Vital Signs Temp 98.2 F 08/20/17 03:51 Pulse 90 08/20/17 03:51 Resp 17 08/20/17 03:51 BP 129/73 08/20/17 03:51 Pulse Ox 98 08/20/17 03:51 - Medical History PMH: Bipolar Disorder, Depression, HTN, Hypercholesterolemia, Schizophrenia Denies: Alzheimer's Disease, Anemia, Arthritis, Asthma, Atrial Fibrillation, Bronchitis, Cardia Arrhythmia, CHF, COPD, Crohn's Disease, Dementia, Diabetes, Diverticulitis, Emphysema, Fractures, Gastritis, Gall Bladder Disease, Hepatitis , HIV, Hyperthyroidism, Hypothyroidism, Kidney Stones, Migraine, Mitral Valve Prolapse, Multiple Sclerosis, Osteoporosis, Pancreatitis, Parkinson's Disease, Peripheral Edema, Pneumonia, Pulmonary Embolism, Chronic Kidney Disease, Rheumatoid Arthritis, Seizures, Sickle Cell Disease, Sexually Transmitted Disease, TIA - Surgical History Surgical History: Denies: Appendectomy, CABG, Carotid Endarterectomy, Cholecystectomy, Coronary Stent, Pacemaker, Tonsillectomy - Family History Family History: States: Unknown Family Hx - Social History Drugs: Cocaine, Opiates (heroine) - Immunization History Hx Tetanus Toxoid Vaccination: No Hx Influenza Vaccination: No Hx Pneumococcal Vaccination: No - Home Medications Home Medications: Ambulatory Orders Medication Instructions Recorded Aspirin [Ecotrin] 81 mg PO DAILY #30 01/29/17 Losartan [Cozaar] 25 mg PO DAILY #30 tab 01/29/17 MetFORMIN [glucoPHAGE] 1,000 mg PO BRK #30 tab 01/29/17 Atorvastatin [Lipitor] 10 mg PO HS tab 05/28/17 Fenofibrate [Tricor] 145 mg PO DAILY tab 05/28/17 Losartan [Cozaar] 25 mg PO DAILY tab 05/28/17 OLANZapine [Zyprexa] 20 mg PO HS 30 Days #60 tab 05/28/17 Pantoprazole [Protonix EC Tab] 40 mg PO DAILY ect 05/28/17 ARIPiprazole [Abilify] 20 mg PO DAILY 30 Days #60 tab 08/03/17 Ammonium Lactate 12% [Lac-Hydrin 1 ea TOP BID 14 Days #1 tube 08/03/17 12% Cream (140 g)] Aspirin [Ecotrin] 81 mg PO DAILY 15 Days #15 tabec 08/03/17 Atorvastatin [Lipitor] 10 mg PO HS 15 Days #15 tab 08/03/17 Losartan [Cozaar] 25 mg PO DAILY 15 Days #15 tab 08/03/17 MetFORMIN [glucoPHAGE] 1,000 mg PO BRK 15 Days #15 tab 08/03/17 Pantoprazole [Protonix EC Tab] 40 mg PO DAILY #0 ect 08/03/17 traZODone [Desyrel] 100 mg PO HS 30 Days #30 tab 08/03/17 - Allergies Allergies/Adverse Reactions: Allergies Allergy/AdvReac Type Severity Reaction Status Date / Time No Known Allergies Allergy Verified 07/21/17 11:35 Review of Systems ROS Statement: Except As Marked, All Systems Reviewed And Found Negative Psych: Positive for: Suicidal ideation (& desire to cut himself). Negative for : Other (homicidal ideation) Physical Exam - Reviewed Nursing Documentation Reviewed: Yes Vital Signs Reviewed: Yes - Physical Exam Appears: Positive for: Well, Non-toxic, No Acute Distress Head Exam: Positive for: ATRAUMATIC, NORMAL INSPECTION, NORMOCEPHALIC Skin: Positive for: Normal Color, Warm, Dry Eye Exam: Positive for: EOMI, Normal appearance, PERRL ENT: Positive for: Normal ENT Inspection Neck: Positive for: Normal, Painless ROM, Supple Cardiovascular/Chest: Positive for: Regular Rate, Rhythm. Negative for: Murmur Respiratory: Positive for: Normal Breath Sounds. Negative for: Respiratory Distress Gastrointestinal/Abdominal: Positive for: Normal Exam, Bowel Sounds, Soft. Negative for: Tenderness Back: Positive for: Normal Inspection Extremity: Positive for: Normal ROM. Negative for: Pedal Edema, Deformity Neurologic/Psych: Positive for: Alert, Oriented - Laboratory Results Result Diagrams: 08/20/17 04:10 08/20/17 04:10 - ECG O2 Sat by Pulse Oximetry: 98 (RA) Pulse Ox Interpretation: Normal Medical Decision Making Medical Decision Making: Time: 4:05 Initial Impression: Schizophrenia Initial Plan: --Acetaminophen --Alcohol Serum --BMP --Urine Drug Screen --Salicylate --CBC --Urinalysis --Crisis Evaluation --1:1 Observation 0600 Patient to be admitted for Depression under Dr. Hood. Pt. has no infectious etiology, leukocytosis likely acute phase reactant from earlier agitation. Scribe Attestation: Documented by Jerzy Aldana, acting as a scribe for Dr. Vahid Polanco MD Provider Scribe Attestation: All medical record entries made by the Scribe were at my direction and personally dictated by me. I have reviewed the chart and agree that the record accurately reflects my personal performance of the history, physical exam, medical decision making, and the department course for this patient. I have also personally directed, reviewed, and agree with the discharge instructions and disposition. Disposition - Clinical Impression Clinical Impression: Depression - Disposition Disposition Time: 06:00 Condition: STABLE Forms: [employer] [address] (Salvadorean)
[2017-08-20 04:21] LABS: BASO # 0.1 K/uL (0.0-0.2); BASO % 0.5 % (0.0-2.0); EOS # 0.4 K/uL (0.0-0.7); EOS % 2.3 % (0.0-4.0); HEMOGLOBIN 12.9 g/dL (12.0-18.0); LYMPH # 1.8 K/uL (1.0-4.3); LYMPH % 10.8 % (20.0-40.0); MEAN CELL VOLUME 91.2 fl (80.0-94.0); MEAN CORPUSCULAR HEMOGLOBIN 30.3 pg (27.0-31.0); MEAN CORPUSCULAR HGB CONC 33.2 g/dL (33.0-37.0); MEAN PLATELET VOLUME 8.1 fl (7.2-11.7); MONO # 1.4 K/uL (0.0-0.8); MONO % 8.7 % (0.0-10.0); NEUT # 12.8 K/uL (1.8-7.0); NEUT % 77.7 % (50.0-75.0); RBC 4.26 Mil/uL (4.40-5.90); RED CELL DISTRIBUTION WIDTH 14.1 % (11.5-14.5); WHITE BLOOD COUNT 16.5 K/uL (4.8-10.8)
[2017-08-20 04:34] LABS: BLOOD UREA NITROGEN 15 mg/dl (9-20); CALCIUM 8.9 mg/dL (8.4-10.2); GFR AFRICAN-AMERICAN > 60; GFR NON-AFRICAN AMERICAN > 60
[2017-08-20 04:35] LABS: ACETAMINOPHEN < 10.0 ug/ml (10.0-30.0); SALICYLATE < 1.0 mg/dl
[2017-08-20 04:38] LABS: URINE BILIRUBIN NEGATIVE (NEGATIVE); URINE BLOOD NEGATIVE (NEGATIVE); URINE CLARITY CLEAR (Clear); URINE COLOR STRAW (YELLOW); URINE GLUCOSE (UA) NEG (Normal); URINE LEUKOCYTE ESTERASE NEG Leu/uL (Negative); URINE NITRATE NEGATIVE (NEGATIVE); URINE PROTEIN NEGATIVE (NEGATIVE); URINE UROBILINOGEN 0.2-1.0 mg/dL (0.2-1.0)
[2017-08-20 04:51] LABS: BARBITURATES, UR NEGATIVE (NEGATIVE); BENZODIAZEPINES, UR NEGATIVE (NEGATIVE); OPIATES, UR POSITIVE (NEGATIVE); PHENCYCLIDINE, UR NEGATIVE (NEGATIVE)
--- NOTE | 2017-08-20 09:50 | RAD ---
HISTORY: SI COMPARISON: Comparison made with prior chest radiograph 07/28/2017 TECHNIQUE: Chest PA and lateral FINDINGS: LUNGS: No active pulmonary disease. PLEURA: No significant pleural effusion identified. No pneumothorax apparent. CARDIOVASCULAR: Normal. OSSEOUS STRUCTURES: No significant abnormalities. VISUALIZED UPPER ABDOMEN: Normal. OTHER FINDINGS: None. IMPRESSION: No active disease.
[2017-08-20] MEDS ORDERED: Alum-Mag Hydrox-Simethicone Susp (30 mL) PO PRN (10:04)
[2017-08-20] MEDS ORDERED: Magnesium Hydroxide Susp 30 ml UD PO PRN (10:04)
[2017-08-20] MEDS ORDERED: DiphenhydrAMINE 50 mg/ml Inj IM PRN (10:04)
--- NOTE | 2017-08-20 11:14 | PCM.BM ---
<Ying Marrero - Last Filed: 08/20/17 11:12> Treatment assets and liabiliti Patient Assests: adapts well, cooperative, resourceful, self-reliant, ADL independent, physically healthy, negotiates basic needs, good past tx response, financial stabiity Patient Liabilities: financial problems, poor support system, substance abuse - Milieu Protocol Maintain good personal hygiene: daily Encourage regular showers, daily Remind patient to perform daily oral care, daily Assist patient to perform ADL's Conduct patient checks and document Observation sheet: Q15 minutes Maintain personal safety: every shift Educate patient to report safety concerns to staff, every shift Monitor environment for contraband/sharps Medication safety: Monitor for expected outcome, potential side effects: every shift, Assess barriers to learning: every shift, Assess readiness for medication education: every shift <Vince Ames - Last Filed: 08/22/17 15:15> Family Contact Family involvement: Famliy/SO not involved Family contact: Patient declines to allow family contact at present Family contact name: Pt denied. - Outside Agency Agency 1 Care involvment: Following patient during stay, Information-sharing Agency contact name: DAVIDDee Dee - Idania Rosenthal [place] - Goals for Treatment Patient goals for treatment: Pt reported that he is depressed and having trouble sleeping and would like improvement in these two areas prior to discharge. Pt also reported that he is working with [facility] to obtain stable housing again as he still has an active voucher. Discharge/Continuing Care - Education Needs Education Needs: Patient Medication, Patient Diagnosis/Disease Process, Patient Coping Skills, Patient Placement options, Patient Community resources, Patient Aftercare Safety Plan - Discharge Discharge Criteria: Tolerates medication w/o severe side effects, Free of Suicidal thoughts, Free of agitation, Normal sleep pattern, No longer exhibiting s/s of withdrawal, Reduction of target symptoms Discharge to:: Group Home - Treatment Team Participation Discussed with Family/SO: No Was Patient/Family/SO present at Treatment Team Meeting: Yes <Juany Knapp - Last Filed: 08/23/17 09:07> - Diagnosis (1) Schizoaffective disorder Status: Chronic Interventions: Medication management, Individual and group therapy, Psychoeducation 08/23/17 09:08 (2) Opiate abuse, continuous Status: Acute Interventions: Medication management, Individual and group therapy, Psychoeducation 08/23/17 09:08 (3) Cocaine abuse Status: Acute Interventions: Motivational interviewing, Individual and group therapy, Psychoeducation 08/23/17 09:08 <Viridiana Kraus - Last Filed: 08/27/17 08:42> - Diagnosis (1) Psychosis Status: Acute
--- NOTE | 2017-08-20 17:54 | PCM.PSYCH ---
Initial Psychiatric Evaluation - Initial Psychiatric Evaluation Chief Complaint (in patient's own words): [facility] becoming depressed, was hearing voices of family member , telling him self to harm himself Patient's Reaction to Hospitalization: signed voluntary History of Present Illness and Precipitating Events: presented to [facility] via er at [facility] after self referral. reports changes in mood and thought patterns since last admission earlier this month. reportedly pt was not able to obtain abilify 2nd to insurance. was only taking trazodone 200mg for sleep. reports that walked to hospital with left foot being wet resulting having a blister on left foot. reports that has been seen at [facility] for intake and is scheduled to see a therapist this month and will be scheduled to see a psychiatrist. admits homelessness and missing family and not working. reports that in past has taken seroquel at "higher doses and it worked ". admits risperdal and zyprexa made him e"feel like he was out of his body". defers option of long acting injectable at this time-reviewed that can change mind. Current Medications: Active Medications Generic Name Dose Route Start Last Admin Trade Name Freq PRN Reason Stop Dose Admin Acetaminophen 650 mg 08/20/17 10:04 Tylenol 325mg Tab PO Q4 PRN Pain, moderate (4-7) Al Hydrox/Mg Hydrox/Simethicone 30 ml 08/20/17 10:04 Maalox Plus 30 Ml PO Q4 PRN Dyspepsia Aspirin 81 mg 08/20/17 11:45 08/20/17 13:14 Ecotrin PO 81 mg DAILY [place] Administration Atorvastatin Calcium 10 mg 08/20/17 22:00 Lipitor PO HS [place] Diphenhydramine HCl 50 mg 08/20/17 10:04 Benadryl IM Q6 PRN Extrapyramidal S/S Unable PO Diphenhydramine HCl 50 mg 08/20/17 10:04 Benadryl PO Q6 PRN Extrapyramidal Symptoms Haloperidol 5 mg 08/20/17 10:04 Haldol PO Q4 PRN Agitation Haloperidol Lactate 5 mg 08/20/17 10:04 Haldol IM Q4 PRN Agitation, Unable to Take PO Lorazepam 2 mg 08/20/17 10:04 Ativan IM Q4 PRN Anxiety/Agitation,Unable PO Lorazepam 2 mg 08/20/17 10:04 Ativan PO Q4 PRN Anxiety/Agitation Losartan Potassium 25 mg 08/20/17 11:45 08/20/17 13:12 Cozaar PO 25 mg DAILY [place] Administration Magnesium Hydroxide 30 ml 08/20/17 10:04 Milk Of Magnesia PO HS PRN Constipation Metformin HCl 1,000 mg 08/20/17 11:45 08/20/17 13:12 Glucophage PO 1,000 mg DAILY [place] Administration Trazodone HCl 200 mg 08/20/17 22:00 Desyrel PO HS [place] Past Psychiatric History - Past Psychiatric History Prior Psychiatric Treatment: multiple admissions at [facility] most recent this month Nature of Treatment: inpt. was stabilized on abilify but was unable to obtain upon d/c 2nd insur History of Abuse: denies History of ETOH/Drug Use: reports intranasal use of cocaine and heroin most recent use within past 48 hours. denies complaints of withdrawals at this time History of Family Illness: denies known Pertinent Medical Hx (Current Medical&Sleep Prob, Allergies): Allergies Allergy/AdvReac Type Severity Reaction Status Date / Time No Known Allergies Allergy Verified 07/21/17 11:35 Aspirin [Ecotrin] 81 mg PO DAILY #30 01/29/17 Atorvastatin [Lipitor] 10 mg PO HS tab 05/28/17 ARIPiprazole [Abilify] 20 mg PO DAILY 30 Days #60 tab 08/03/17 Losartan [Cozaar] 25 mg PO DAILY 15 Days #15 tab 08/03/17 traZODone [Desyrel] 100 mg PO HS 30 Days #30 tab 08/03/17 MetFORMIN [glucoPHAGE] 1,000 mg PO DAILY 08/20/17 Review of Systems - Integumentary Additional comments: reports that has blister on outer part of left food which is admitted related to walking with a wet food for several days - Psychiatric Psychiatric: Abnormal Sleep Pattern, Anhedonia, Depression, Hopelessness, Visual Hallucinations Mental Status Examination - Personal Presentation Personal Presentation: Looks older than stated age - Affect Affect: Constricted - Motor Activity Motor Activity: Psychomotor Retardation - Speech Speech: Organized - Mood Mood: Depressed, Anxious - Formal Thought Process Formal Thought Process: Hallucinations - Hallucinations/Delusions Hallucinations: Auditory Delusions: Persecution Additional comments: commentary and command - Obsessions/Compulsions Obsessions: No Compulsions: No - Cognitive Functions Orientation: Person, Place, Situation, Time Sensorium: Alert Attention/Concentration: Attentive Judgement: Imparied, as evidence by: Poor judgement, Imparied, as evidence by: Other Memory: Recent intact, as evidence by: Ability to recall events of the day - Risk Risk: Suicidal, Withdrawal - Strength & Assets Inventory Strength & Assets Inventory: Cooperative (homeless, repeated admissions) DSM 5 DX - DSM 5 DSM 5 Diagnosis: 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 poly substance cocaine and opiates active reported blister left foot - Recommended/Plan of Treatment Treatment Recommendations and Plan of Treatment: admission per attending vital signs and visual observation per protocol per clinical status prns per unit protocol will not renew abilify as per previous admission as pt reportedly was unable to obtain it pt reports previous use of seroquel- will start seroquel 150mg po hs-assess for eps-team to reassess in am given reported complaints of depression will start lexapro 5 po am first dose now-assess possible s/s serotonin syndrome trazodone 200mg po hs get up slowly falls precautions possible constipation get up slowly falls precautions consult dr ann-is private pt-pt reports being diabetic not eating meat team to consider possible podiatry referral per dr ann discharge planning in progress Projected ELOS: 5-7 days or per clinical status Discharge Plan and Discharge Criteria: safety - Smoking Cessation Smoking Cessation Initiated: No Reason for not providing: pt defers
[2017-08-21 09:40] LABS: T4 7.54 ug/dl (5.5-11.0)
--- NOTE | 2017-08-21 10:03 | PCM.PYCHPN ---
Psychiatric Progress Note - Psychiatric Progress Note Patient seen today, length of contact: pt seen and evaluated Patient Chief Complaint: pt still feelsdepressed and cant sleep at night due to racing thoughts and hearing the voices of the mother and feels very paranoid.pt denies suicidal ideation.pt says that he was d/c last time on abilify but could not get filled due to insurance not approving it.pt denies withdrawls from opiate and alcohol.no side effects to meds . DSM 5 Symptoms Update: schizoaffective disorder Medication Change: Yes (seroquel 50 mg am and 150 mg hs,increase lexapro) Mental Status Examination - Cognitive Function Orientation: Person, Place, Situation, Time Concentration: Poor Association: WNL Fund of Knowledge: WNL - Mood Mood: Depressed, Anxious - Affect Affect: Constricted - Formal Thought Process Formal Thought Process: Hallucinations - Suicidal Ideation Suicidal Ideation: No - Homicidal Ideation Homicidal Ideation: No Goal/Treatment Plan - Goal/Treatment Plan Progress Toward Problem(s) and Goals/Treatment Plan: will start pt on seroquel 50 mg am and 150 mg hs and increase lexapro to 10 mg daily and titrate to stabilize the pt and engage pt in therapy. will have hospitalist see pt for sore throat and pain
--- NOTE | 2017-08-22 13:07 | PCM.PYCHPN ---
Psychiatric Progress Note - Psychiatric Progress Note Patient seen today, length of contact: pt seen and evaluated Patient Chief Complaint: pt still feels depressed but able to sleep at night due to decrease in racing thoughts and is still hearing the voices of the mother and feels very paranoid.pt denies suicidal ideation.pt says that he was d/c last time on abilify but could not get filled due to insurance not approving it.pt denies withdrawls from opiate and alcohol.no side effects to meds . Medication Change: Yes (seroquel 50 mg am and 150 mg hs,increase lexapro) Mental Status Examination - Cognitive Function Orientation: Person, Place, Situation, Time Concentration: Poor Association: WNL Fund of Knowledge: WNL - Mood Mood: Depressed, Anxious - Affect Affect: Constricted - Formal Thought Process Formal Thought Process: Hallucinations - Suicidal Ideation Suicidal Ideation: No - Homicidal Ideation Homicidal Ideation: No Goal/Treatment Plan - Goal/Treatment Plan Progress Toward Problem(s) and Goals/Treatment Plan: will start pt on seroquel 50 mg am and 150 mg hs and increase lexapro to 10 mg daily and titrate to stabilize the pt and engage pt in therapy. will have hospitalist see pt for sore throat and pain
--- NOTE | 2017-08-23 09:12 | PCM.PYCHPN ---
Psychiatric Progress Note - Psychiatric Progress Note Patient seen today, length of contact: Patient evaluated, case discussed with team, chart reviewed Patient Chief Complaint: "I'm still hearing voices." Problems Identified/Issues Discussed: Patient continues to have auditory hallucinations of his mother. He reports that he continues to feel depressed. NO VH/SH/HI. He denies adverse effects to medications. We discussed continued titration of Seroquel. Medication Change: Yes (Increase Seroquel to 50 mg PO Daily/ 200 mg PO HS) Medical Record Reviewed: Yes Consults ordered or reviewed: Medicine consult Mental Status Examination - Cognitive Function Orientation: Person, Place, Situation, Time Memory: Intact Attention: WNL Concentration: WNL Association: WNL Fund of Knowledge: [facility] Decription of patient's judgement and insights: Fair I/J - Mood Mood: Depressed, Anxious - Affect Affect: Constricted - Speech Speech: Appropriate - Formal Thought Process Formal Thought Process: Hallucinations Psychotic Thoughts and Behaviors: +AH - Suicidal Ideation Suicidal Ideation: No - Homicidal Ideation Homicidal Ideation: No Goal/Treatment Plan - Goal/Treatment Plan Need for Continued Stay: Remain at risks for inpatient hospitalization, Discharge may exacerbated symptoms Progress Toward Problem(s) and Goals/Treatment Plan: Schizoaffective Disorder; Opiate Use Disorder; Cocaine Use Disorder; patient needs continued hospitalization for treatment and safety -Continue Lexapro and Trazodone -Increase Seroquel to 50 mg PO AM/ 200 mg PO HS -Individual and group therapy -Motivational interviewing -Psychoeducation -Disposition planning Estimated Date of D/C: 08/26/17
[2017-08-23] MEDS: Nystatin 100,000 Units/ml Oral Susp 5 ml UD PO SCH ×2 (13:59→16:56)
--- NOTE | 2017-08-23 18:53 | PCM.PYCHPN ---
Psychiatric Progress Note - Psychiatric Progress Note Patient seen today, length of contact: Patient evaluated, case discussed with team, chart reviewed Patient Chief Complaint: reports doing being better, was seen in milieu at times talking on public phone. staff report pt seen about unit adherence with treatment. pt denies side effects of medications. Problems Identified/Issues Discussed: alteration in mood alteration in cognition Medical Problems: per chart,pt being following by hospitalist Diagnostic Results: per psychiatry per medicine per nursing per social media analyst per recreational therapy Medication Change: No Medical Record Reviewed: Yes Consults ordered or reviewed: pt being followed by hospitalist Mental Status Examination - Cognitive Function Orientation: Person, Place, Situation, Time Memory: Intact Attention: WNL Concentration: WNL Association: WNL Fund of Knowledge: WN Decription of patient's judgement and insights: impaired - Mood Mood: Depressed Additional comments: less anxious, less depressed - Affect Affect: Constricted - Speech Speech: Appropriate - Formal Thought Process Formal Thought Process: Hallucinations - Suicidal Ideation Suicidal Ideation: No - Homicidal Ideation Homicidal Ideation: No Goal/Treatment Plan - Goal/Treatment Plan Need for Continued Stay: Remain at risks for inpatient hospitalization, Discharge may exacerbated symptoms Progress Toward Problem(s) and Goals/Treatment Plan: admission per attending vital signs and visual observation per protocol per clinical status prns per unit protocol get up slowly falls precautions team to consider possible podiatry referral per dr ann discharge planning in progress Estimated Date of D/C: 08/26/17 - Smoking Cessation Smoking Cessation Initiated: No Reason for not providing: pt defers
[2017-08-24 06:13] LABS: BASO # 0.1 K/uL (0.0-0.2); EOS # 1.8 K/uL (0.0-0.7); HEMOGLOBIN 12.8 g/dL (12.0-18.0); LYMPH # 1.4 K/uL (1.0-4.3); LYMPH % 13.7 % (20.0-40.0); MEAN CELL VOLUME 92.3 fl (80.0-94.0); MEAN CORPUSCULAR HEMOGLOBIN 30.6 pg (27.0-31.0); MEAN CORPUSCULAR HGB CONC 33.1 g/dL (33.0-37.0); MEAN PLATELET VOLUME 8.1 fl (7.2-11.7); MONO # 1.5 K/uL (0.0-0.8); MONO % 14.9 % (0.0-10.0); NEUT # 5.2 K/uL (1.8-7.0); NEUT % 52.4 % (50.0-75.0); RBC 4.18 Mil/uL (4.40-5.90); RED CELL DISTRIBUTION WIDTH 14.2 % (11.5-14.5)
--- NOTE | 2017-08-24 07:00 | CP.PCM.CON ---
History of Present Illness - History of Present Illness History of Present Illness: This is a 41 y/o male admitted for recurrence of psychotic sx. He claims that he started having auditory hallucinations lately. Has a hx of HTN, hyperlipidemia,DM 2 and cocaine use. He is noncompliant which is worsened by recurrences of his Psych sx. He complains of discomfort on the surface of the tongue. He had a recent unprotected sex and engaged in oral sex with a female partner . Currently on Losartan, atorvastatin,ASA and metformin. Review of Systems - Psychiatric Psychiatric: Abnormal Sleep Pattern, Behavioral Changes. absent: Auditory Hallucinations Past Patient History - Infectious Disease Hx of Infectious Diseases: None - Past Medical History & Family History Past Medical History?: Yes - Past Social History Drugs: Cocaine, Opiates (heroine) - CARDIAC Hx Cardiac Disorders: No - PULMONARY Hx Respiratory Disorders: No Hx Tuberculosis: No - NEUROLOGICAL HX Cerebrovascular Accident: No Hx Seizures: No - HEENT Hx HEENT Problems: No Hx Cataracts: No Hx Deafness: No Hx Difficulty Chewing: No Hx Epistaxis: No Hx Glaucoma: No Hx Macular Degeneration: No - RENAL Hx Chronic Kidney Disease: No Hx Kidney Stones: No - ENDOCRINE/METABOLIC Hx Endocrine Disorders: Yes (Pt has prediabetes) Hx Hyperthyroidism: No Hx Hypothyroidism: No - HEMATOLOGICAL/ONCOLOGICAL Hx Blood Disorders: No Hx Cancer: No Hx Human Immunodeficiency Virus (HIV): No - INTEGUMENTARY Hx Dermatological Problems: No Hx Basil Cell: No Hx Druan: No Hx Cellulitis: No Hx Eczema: No Hx Melanoma: No Hx Psoriasis: No Hx Squamous Cell: No - MUSCULOSKELETAL/RHEUMATOLOGICAL Hx Musculoskeletal Disorders: No Hx Arthritis: No Hx Fractures: No Hx Osteoporosis: No Hx Rheumatoid Arthritis: No - GASTROINTESTINAL Hx Gastrointestinal Disorders: No Hx Crohn's Disease: No Hx Diverticulitis: No Hx Gall Bladder Disease: No Hx Gastritis: No Hx Pancreatitis: No - GENITOURINARY/GYNECOLOGICAL Hx Genitourinary Disorders: No Hx Sexually Transmitted Disorders: No - PSYCHIATRIC Hx Emotional Abuse: No Hx Physical Abuse: No Hx Sexual Abuse: No Hx Substance Use: Yes (heroin, cocaine) - SURGICAL HISTORY Hx Surgeries: No Hx Appendectomy: No Hx Carotid Endarterectomy: No Hx Cholecystectomy: No Hx Coronary Artery Bypass Graft: No Hx Coronary Stent: No Hx Tonsillectomy: No - ANESTHESIA Hx Anesthesia: No Meds Allergies/Adverse Reactions: Allergies Allergy/AdvReac Type Severity Reaction Status Date / Time No Known Allergies Allergy Verified 07/21/17 11:35 - Medications Medications: Current Medications Al Hydrox/Mg Hydrox/Simethicone (Maalox Plus 30 Ml) 30 ml PO Q4 PRN PRN Reason: Dyspepsia Aspirin (Ecotrin) 81 mg PO DAILY [facility] Last Admin: 08/23/17 08:29 Dose: 81 mg Atorvastatin Calcium (Lipitor) 10 mg PO HS [facility] Last Admin: 08/23/17 21:21 Dose: 10 mg Diphenhydramine HCl (Benadryl) 50 mg IM Q6 PRN PRN Reason: Extrapyramidal S/S Unable PO Diphenhydramine HCl (Benadryl) 50 mg PO Q6 PRN PRN Reason: Extrapyramidal Symptoms Escitalopram Oxalate (Lexapro) 10 mg PO DAILY [facility] Last Admin: 08/23/17 08:29 Dose: 10 mg Haloperidol (Haldol) 5 mg PO Q4 PRN PRN Reason: Agitation Haloperidol Lactate (Haldol) 5 mg IM Q4 PRN PRN Reason: Agitation, Unable to Take PO Ibuprofen (Motrin Tab) 600 mg PO Q8 PRN PRN Reason: Pain, severe (8-10) Lorazepam (Ativan) 2 mg IM Q4 PRN PRN Reason: Anxiety/Agitation,Unable PO Lorazepam (Ativan) 2 mg PO Q4 PRN PRN Reason: Anxiety/Agitation Last Admin: 08/23/17 14:52 Dose: 2 mg Losartan Potassium (Cozaar) 25 mg PO DAILY [facility] Last Admin: 08/23/17 08:28 Dose: 25 mg Magnesium Hydroxide (Milk Of Magnesia) 30 ml PO HS PRN PRN Reason: Constipation Metformin HCl (Glucophage) 1,000 mg PO DAILY [facility] Last Admin: 08/23/17 08:29 Dose: 1,000 mg Nystatin (Nystatin Oral Susp) 5 ml PO TID [facility] Last Admin: 08/23/17 16:56 Dose: 5 ml Quetiapine Fumarate (Seroquel) 50 mg PO DAILY [facility] Last Admin: 08/23/17 08:30 Dose: 50 mg Quetiapine Fumarate (Seroquel) 200 mg PO HS [facility] Last Admin: 08/23/17 21:21 Dose: 200 mg Trazodone HCl (Desyrel) [address] [facility] Last Admin: 02/05/18 21:20 Dose: 200 mg Physical Exam - Head Exam Head Exam: NORMAL INSPECTION - Eye Exam Eye Exam: Normal appearance - ENT Exam ENT Exam: Mucous Membranes Moist Additional comments: oral thrush noted on surface of tongue - Respiratory Exam Respiratory Exam: Clear to Auscultation Bilateral - Cardiovascular Exam Cardiovascular Exam: REGULAR RHYTHM - GI/Abdominal Exam GI & Abdominal Exam: Normal Bowel Sounds - Exam Exam: NORMAL INSPECTION Results - Vital Signs Recent Vital Signs: Last Vital Signs Temp 98.4 F 08/23/17 16:39 Pulse 92 H 08/23/17 16:39 Resp 18 08/23/17 16:39 BP 102/68 08/23/17 16:39 Pulse Ox 98 08/20/17 07:33 - Labs Result Diagrams: 08/24/17 05:40 08/20/17 04:10 Labs: Laboratory Results - last 24 hr 08/21/17 08/24/17 08:14 05:40 WBC 10.0 RBC 4.18 L Hgb 12.8 Hct 38.6 MCV 92.3 MCH 30.6 MCHC 33.1 RDW 14.2 Plt Count 207 MPV 8.1 Neut % (Auto) 52.4 Lymph % (Auto) 13.7 L [place] % (Auto) 14.9 H Eos % (Auto) 18.0 H Baso % (Auto) 1.0 Neut # (Auto) 5.2 Lymph # (Auto) 1.4 [place] # (Auto) 1.5 H Eos # (Auto) 1.8 H Baso # (Auto) 0.1 Hemoglobin A1c 5.3 Assessment & Plan (1) Hypertension Status: Acute (2) Hyperlipidemia Status: Acute (3) Oral candidiasis Status: Acute (4) Unprotected sex Status: Acute (5) Cocaine abuse Status: Acute Priority: High (6) Non-insulin dependent type 2 diabetes mellitus Status: Acute - Assessment and Plan (Free Text) Plan: Cont all meds start Nystatin oral soln check for STD'd will follow up
[2017-08-24] MEDS: Nystatin 100,000 Units/ml Oral Susp 5 ml UD PO SCH ×3 (08:47→17:21)
--- NOTE | 2017-08-24 11:10 | PCM.PYCHPN ---
Psychiatric Progress Note - Psychiatric Progress Note Patient seen today, length of contact: Patient evaluated, case discussed with team, chart reviewed Patient Chief Complaint: "I'm still hearing voices." Problems Identified/Issues Discussed: No significant events overnight. Repeat CBC down to 10 from 16; no acute signs/ symptoms of infection. Patient continues to have auditory hallucinations of his mother. He reports that he continues to feel depressed. NO VH/SH/HI. He denies adverse effects to medications. We discussed continued titration of Seroquel. Medication Change: Yes (Stop Seroquel AM; Increase Seroquel to 300 mg PO HS) Medical Record Reviewed: Yes Consults ordered or reviewed: Medicine consult Mental Status Examination - Cognitive Function Orientation: Person, Place, Situation, Time Memory: Intact Attention: WNL Concentration: WNL Association: WNL Fund of Knowledge: [facility] Decription of patient's judgement and insights: Fair I/J - Mood Mood: Depressed - Affect Affect: Constricted - Speech Speech: Appropriate - Formal Thought Process Formal Thought Process: Hallucinations Psychotic Thoughts and Behaviors: +Intermittent AH of his mother - Suicidal Ideation Suicidal Ideation: No - Homicidal Ideation Homicidal Ideation: No Goal/Treatment Plan - Goal/Treatment Plan Need for Continued Stay: Remain at risks for inpatient hospitalization, Discharge may exacerbated symptoms Progress Toward Problem(s) and Goals/Treatment Plan: Schizoaffective Disorder; Opiate Use Disorder; Cocaine Use Disorder; patient needs continued hospitalization for treatment and safety -Continue Lexapro and Trazodone -Increase Seroquel to 300 mg PO HS; stop AM dose -Individual and group therapy -Motivational interviewing -Psychoeducation -Disposition planning Estimated Date of D/C: 08/27/17
[2017-08-24 16:17] VITALS: RESP 18
--- NOTE | 2017-08-24 17:23 | CP.PCM.PN ---
Subjective - Date & Time of Evaluation Date of Evaluation: 08/24/17 Time of Evaluation: 17:13 - Subjective Subjective: PAtient was seen and examined at bedside. He continues to hear voices, however denies any voices telling him to hurt anyone . Slept well overnight, has a good appetite. States the abnormal sensation in his mouth he was having previously has improved. No other complaints at this time. - Denies chest pain, SOB, N/V/D Objective - Vital Signs/Intake and Output Vital Signs (last 24 hours): Temp Pulse Resp BP Pulse Ox 98.1 F 83 18 111/69 98 08/24/17 16:16 08/24/17 16:16 08/24/17 16:16 08/24/17 16:16 08/20/17 07:33 - Medications Medications: Current Medications Al Hydrox/Mg Hydrox/Simethicone (Maalox Plus 30 Ml) 30 ml PO Q4 PRN PRN Reason: Dyspepsia Aspirin (Ecotrin) 81 mg PO DAILY [facility] Last Admin: 08/24/17 08:45 Dose: 81 mg Atorvastatin Calcium (Lipitor) 10 mg PO HS [facility] Last Admin: 08/23/17 21:21 Dose: 10 mg Diphenhydramine HCl (Benadryl) 50 mg IM Q6 PRN PRN Reason: Extrapyramidal S/S Unable PO Diphenhydramine HCl (Benadryl) 50 mg PO Q6 PRN PRN Reason: Extrapyramidal Symptoms Escitalopram Oxalate (Lexapro) 10 mg PO DAILY [facility] Last Admin: 08/24/17 08:45 Dose: 10 mg Haloperidol (Haldol) 5 mg PO Q4 PRN PRN Reason: Agitation Haloperidol Lactate (Haldol) 5 mg IM Q4 PRN PRN Reason: Agitation, Unable to Take PO Ibuprofen (Motrin Tab) 600 mg PO Q8 PRN PRN Reason: Pain, severe (8-10) Lorazepam (Ativan) 2 mg IM Q4 PRN PRN Reason: Anxiety/Agitation,Unable PO Lorazepam (Ativan) 2 mg PO Q4 PRN PRN Reason: Anxiety/Agitation Last Admin: 08/23/17 14:52 Dose: 2 mg Losartan Potassium (Cozaar) 25 mg PO DAILY [facility] Last Admin: 08/24/17 08:45 Dose: 25 mg Magnesium Hydroxide (Milk Of Magnesia) 30 ml PO HS PRN PRN Reason: Constipation Metformin HCl (Glucophage) 1,000 mg PO DAILY [facility] Last Admin: 08/24/17 08:45 Dose: 1,000 mg Nystatin (Nystatin Oral Susp) 5 ml PO TID [facility] Last Admin: 08/24/17 14:00 Dose: Not Given Quetiapine Fumarate (Seroquel) 300 mg PO [facility] Trazodone HCl (Desyrel) 200 mg PO [facility] Last Admin: 08/23/17 21:20 Dose: 200 mg - Labs Labs: 08/24/17 05:40 08/20/17 04:10 - Constitutional Appears: No Acute Distress - Head Exam Head Exam: NORMAL INSPECTION - ENT Exam Additional comments: Thrush in mouth resolving - Respiratory Exam Respiratory Exam: Clear to Ausculation Bilateral. absent: Rhonchi, Wheezes - Cardiovascular Exam Cardiovascular Exam: REGULAR RHYTHM, +S1, +S2 - GI/Abdominal Exam GI & Abdominal Exam: Soft, Normal Bowel Sounds. absent: Tenderness - Extremities Exam Extremities Exam: Normal Inspection. absent: Calf Tenderness - Neurological Exam Neurological Exam: Alert, Awake, CN II-XII Intact, Oriented x3 - Skin Skin Exam: Normal Color, Warm Assessment and Plan - Assessment and Plan (Free Text) Assessment: 1) Schizoaffective disorder - C/W psych recomendations - increase seroquel dosage - c/w lexapro and trazodone 2) Oral candidiasis ( improving) - Nystatin 5ml PO TID - RPR negative. HIV neg as per 07/2017 3. Hypertension - Losartan 25 mg PO 4) Hyperlipidemia - Lipator 10 mg 5) Non insulin dependent Diabetes - Metformin 1000 BID 6) DVT prophylaxis -encouraged to ambulate
[2017-08-25] MEDS: Nystatin 100,000 Units/ml Oral Susp 5 ml UD PO SCH ×3 (09:32→16:47)
[2017-08-25] MEDS: Benzocaine/Menthol (Cepacol) Lozenge PO PRN ×2 (14:07→21:14)
--- NOTE | 2017-08-25 14:19 | PCM.PYCHPN ---
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 use disorder Medication Change: No Medical Record Reviewed: Yes Mental Status Examination - Cognitive Function Orientation: Person, Place, Situation, Time Memory: Intact Attention: WNL Concentration: WNL Association: WNL Fund of Knowledge: WNL - Mood Mood: Depressed - Affect Affect: Constricted - Speech Speech: Appropriate - Formal Thought Process Formal Thought Process: Hallucinations Psychotic Thoughts and Behaviors: pt reported non command auditory hallucinations - Suicidal Ideation Suicidal Ideation: No - Homicidal Ideation Homicidal Ideation: No Goal/Treatment Plan - Goal/Treatment Plan Need for Continued Stay: Remain at risks for inpatient hospitalization, Discharge may exacerbated symptoms Progress Toward Problem(s) and Goals/Treatment Plan: continue with seroquel 300mg qhs Motivational and group therapy social media strategist to arrange for discharge plan , possible inpatient rehab Estimated Date of D/C: 08/27/17
--- NOTE | 2017-08-25 15:37 | CP.PCM.PN ---
Subjective - Date & Time of Evaluation Date of Evaluation: 08/25/17 Time of Evaluation: 15:34 - Subjective Subjective: 41 YO M seen at bedside. States the abnormal sensation over his tounge is getting better however, he continues to have irritation in his throat for the last couple of days. Denies any difficulty swallowing. Objective - Vital Signs/Intake and Output Vital Signs (last 24 hours): Temp Pulse Resp BP Pulse Ox 97.5 F L 89 18 127/75 98 08/25/17 11:49 08/25/17 09:33 08/25/17 09:00 08/25/17 09:33 08/20/17 07:33 - Medications Medications: Current Medications Al Hydrox/Mg Hydrox/Simethicone (Maalox Plus 30 Ml) 30 ml PO Q4 PRN PRN Reason: Dyspepsia Aspirin (Ecotrin) 81 mg PO DAILY [facility] Last Admin: 08/25/17 09:33 Dose: 81 mg Atorvastatin Calcium (Lipitor) 10 mg PO HS [facility] Last Admin: 08/24/17 21:14 Dose: 10 mg Benzocaine/Menthol (Cepacol Sore Throat) 1 bo PO Q3 PRN PRN Reason: Sore Throat Last Admin: 08/25/17 14:07 Dose: 1 bo Diphenhydramine HCl (Benadryl) 50 mg IM Q6 PRN PRN Reason: Extrapyramidal S/S Unable PO Diphenhydramine HCl (Benadryl) 50 mg PO Q6 PRN PRN Reason: Extrapyramidal Symptoms Escitalopram Oxalate (Lexapro) 10 mg PO DAILY [facility] Last Admin: 08/25/17 09:32 Dose: 10 mg Haloperidol (Haldol) 5 mg PO Q4 PRN PRN Reason: Agitation Haloperidol Lactate (Haldol) 5 mg IM Q4 PRN PRN Reason: Agitation, Unable to Take PO Ibuprofen (Motrin Tab) 600 mg PO Q8 PRN PRN Reason: Pain, severe (8-10) Last Admin: 08/25/17 11:49 Dose: 600 mg Lorazepam (Ativan) 2 mg IM Q4 PRN PRN Reason: Anxiety/Agitation,Unable PO Lorazepam (Ativan) 2 mg PO Q4 PRN PRN Reason: Anxiety/Agitation Last Admin: 08/23/17 14:52 Dose: 2 mg Losartan Potassium (Cozaar) 25 mg PO DAILY [facility] Last Admin: 08/25/17 09:33 Dose: 25 mg Magnesium Hydroxide (Milk Of Magnesia) 30 ml PO HS PRN PRN Reason: Constipation Metformin HCl (Glucophage) 1,000 mg PO DAILY [facility] Last Admin: 08/25/17 09:33 Dose: 1,000 mg Nystatin (Nystatin Oral Susp) 5 ml PO TID [facility] Last Admin: 08/25/17 14:05 Dose: 5 ml Quetiapine Fumarate (Seroquel) [address] [facility] Last Admin: 08/24/17 21:13 Dose: 300 mg Trazodone HCl (Desyrel) [address] [facility] Last Admin: 08/24/17 21:13 Dose: 200 mg - Labs Labs: 08/24/17 05:40 08/20/17 04:10 - Constitutional Appears: No Acute Distress - Head Exam Head Exam: NORMAL INSPECTION - ENT Exam Additional comments: Whitish coating noted over tounge. Pharynx is non erythematous, no tonsilar exudate - Respiratory Exam Respiratory Exam: Clear to Ausculation Bilateral, NORMAL BREATHING PATTERN. absent: Rhonchi, Wheezes - Cardiovascular Exam Cardiovascular Exam: REGULAR RHYTHM, +S1, +S2 - GI/Abdominal Exam GI & Abdominal Exam: Soft, Normal Bowel Sounds. absent: Tenderness - Extremities Exam Extremities Exam: Normal Inspection. absent: Calf Tenderness - Neurological Exam Neurological Exam: Alert, Awake, CN II-XII Intact, Oriented x3 - Skin Skin Exam: Normal Color, Warm Assessment and Plan - Assessment and Plan (Free Text) Assessment: 1) Schizoaffective disorder - C/W psych recomendations - c/w lexapro, seroquel and trazodone 2) Oral candidiasis ( improving) - Nystatin 5ml PO TID - RPR negative. HIV neg as per 07/2017 - Cepacol for throat discomfort 3. Hypertension - Losartan 25 mg PO 4) Hyperlipidemia - Lipator 10 mg 5) Non insulin dependent Diabetes - Metformin 1000 BID 6) DVT prophylaxis -encouraged to ambulate
[2017-08-26] MEDS: Nystatin 100,000 Units/ml Oral Susp 5 ml UD PO SCH ×3 (08:18→16:37)
--- NOTE | 2017-08-26 10:41 | PCM.PYCHPN ---
Psychiatric Progress Note - Psychiatric Progress Note Patient seen today, length of contact: Patient evaluated, case discussed with team, chart reviewed Patient Chief Complaint: I AM STARTING TO FEEL BETTER Problems Identified/Issues Discussed: pt EVALUATED, REPORTED IMPROVED MOOD, LESS DEPRESSED, PRESENTING WITH BRIGHTER AFFECT AND SEEN INTERACTING WITH OTHER PEERS REPORTED CLEARING OFF OF THE AUDITORY HALLUCINATIONS, IMPROVED SLEEP WITH THE SEROQUEL, DENIED ANY CURRENT SUICIDAL OR HOMICIDAL IDEATIONS, DENIED ANY CURRENT SIDE EFFECTS OF MEDICATIONS DSM 5 Symptoms Update: COCAINE INDUCED PSYCHOTIC DISORDER COCAINE USE DISORDER Medication Change: No Medical Record Reviewed: Yes Mental Status Examination - Cognitive Function Orientation: Person, Place, Situation, Time Memory: Intact Attention: WNL Concentration: WNL Association: WNL Fund of Knowledge: WNL - Mood Mood: Neutral - Affect Affect: Constricted - Speech Speech: Appropriate - Formal Thought Process Formal Thought Process: Hallucinations Psychotic Thoughts and Behaviors: pt reported clearing off of the non command auditory hallucinations - Suicidal Ideation Suicidal Ideation: No - Homicidal Ideation Homicidal Ideation: No Goal/Treatment Plan - Goal/Treatment Plan Need for Continued Stay: Remain at risks for inpatient hospitalization, Discharge may exacerbated symptoms Progress Toward Problem(s) and Goals/Treatment Plan: continue with seroquel 300mg qhs Motivational and group therapy social media developer to arrange for discharge plan , possible inpatient rehab Estimated Date of D/C: 08/27/17
[2017-08-26] MEDS: Benzocaine/Menthol (Cepacol) Lozenge PO PRN ×3 (11:34→21:37)
--- NOTE | 2017-08-26 20:32 | CP.PCM.PN ---
Subjective - Date & Time of Evaluation Date of Evaluation: 08/26/17 Time of Evaluation: 12:00 - Subjective Subjective: Patient seen and examined at bedside. Patient appears to be doing well. He has been using the swish and swallow for his oral candidiasis.Cepacol throat lozenges have been helping his throat discomfort. Denies chest pain, SOB, N/V/D Objective - Vital Signs/Intake and Output Vital Signs (last 24 hours): Temp Pulse Resp BP Pulse Ox 97.0 F L 75 18 120/64 98 08/26/17 09:00 08/26/17 09:00 08/26/17 09:00 08/26/17 09:00 08/20/17 07:33 - Medications Medications: Current Medications Al Hydrox/Mg Hydrox/Simethicone (Maalox Plus 30 Ml) 30 ml PO Q4 PRN PRN Reason: Dyspepsia Aspirin (Ecotrin) 81 mg PO DAILY [facility] Last Admin: 08/26/17 08:18 Dose: 81 mg Atorvastatin Calcium (Lipitor) 10 mg PO HS [facility] Last Admin: 08/25/17 21:15 Dose: 10 mg Benzocaine/Menthol (Cepacol Sore Throat) 1 bo PO Q3 PRN PRN Reason: Sore Throat Last Admin: 08/26/17 16:40 Dose: 1 bo Diphenhydramine HCl (Benadryl) 50 mg IM Q6 PRN PRN Reason: Extrapyramidal S/S Unable PO Diphenhydramine HCl (Benadryl) 50 mg PO Q6 PRN PRN Reason: Extrapyramidal Symptoms Escitalopram Oxalate (Lexapro) 10 mg PO DAILY [facility] Last Admin: 08/26/17 08:18 Dose: 10 mg Haloperidol (Haldol) 5 mg PO Q4 PRN PRN Reason: Agitation Haloperidol Lactate (Haldol) 5 mg IM Q4 PRN PRN Reason: Agitation, Unable to Take PO Ibuprofen (Motrin Tab) 600 mg PO Q8 PRN PRN Reason: Pain, severe (8-10) Last Admin: 08/26/17 16:37 Dose: 600 mg Lorazepam (Ativan) 2 mg IM Q4 PRN PRN Reason: Anxiety/Agitation,Unable PO Lorazepam (Ativan) 2 mg PO Q4 PRN PRN Reason: Anxiety/Agitation Last Admin: 08/23/17 14:52 Dose: 2 mg Losartan Potassium (Cozaar) 25 mg PO DAILY [facility] Last Admin: 08/26/17 08:19 Dose: 25 mg Magnesium Hydroxide (Milk Of Magnesia) 30 ml PO HS PRN PRN Reason: Constipation Metformin HCl (Glucophage) 1,000 mg PO DAILY [facility] Last Admin: 08/26/17 08:18 Dose: 1,000 mg Nystatin (Nystatin Oral Susp) 5 ml PO TID [facility] Last Admin: 08/26/17 16:37 Dose: 5 ml Quetiapine Fumarate (Seroquel) 300 mg PO [facility] Last Admin: 08/25/17 21:14 Dose: 300 mg Trazodone HCl (Desyrel) 200 mg PO [facility] Last Admin: 08/25/17 21:14 Dose: 200 mg - Labs Labs: 08/24/17 05:40 08/20/17 04:10 - Constitutional Appears: No Acute Distress - Head Exam Head Exam: NORMAL INSPECTION - ENT Exam Additional comments: Whitish coat noted over tongue - Respiratory Exam Respiratory Exam: Clear to Ausculation Bilateral, NORMAL BREATHING PATTERN - Cardiovascular Exam Cardiovascular Exam: REGULAR RHYTHM, +S1, +S2 - Extremities Exam Extremities Exam: absent: Calf Tenderness - Neurological Exam Neurological Exam: Alert, Awake, Oriented x3 - Skin Skin Exam: Normal Color, Warm Assessment and Plan - Assessment and Plan (Free Text) Assessment: 1) Schizoaffective disorder - C/W psych recomendations - c/w lexapro, seroquel and trazodone 2) Oral candidiasis ( improving) - Nystatin 5ml PO TID - RPR negative. HIV neg as per 07/2017 - Cepacol for throat discomfort 3. Hypertension - Losartan 25 mg PO 4) Hyperlipidemia - Lipator 10 mg 5) Non insulin dependent Diabetes - Metformin 1000 BID 6) DVT prophylaxis -encouraged to ambulate
[2017-08-27 08:38] VITALS: BP 120/62; PULSE 82; TEMP 97.5
[2017-08-27] MEDS: Nystatin 100,000 Units/ml Oral Susp 5 ml UD PO SCH ×2 (08:43→14:52)
[2017-08-27] MEDS: Benzocaine/Menthol (Cepacol) Lozenge PO PRN (08:51)
--- NOTE | 2017-08-27 11:37 | PCM.PYCHDC ---
Mental Status Examination - Mental Status Examination Orientation: Person, Place, Situation Memory: Intact Mood: Neutral Affect: Broad Speech: Appropriate Attention: WNL Concentration: WNL Association: WNL Fund of Knowledge: WNL Formal Thought Process: No Impairment Description of patient's judgement and insight: partial insight , poor judgment Psychotic Thoughts and Behaviors: pt at current mental status denied perceptual disturbances, non elicited Suicidal Ideation: No Current Homicidal Ideation?: No Discharge Summary - Discharge Note Reason for Hospitalization: presented to 3np via er at [facility] after self referral. reports changes in mood and thought patterns since last admission earlier this month. reportedly pt was not able to obtain abilify 2nd to insurance. was only taking trazodone 200mg for sleep. reports that walked to hospital with left foot being wet resulting having a blister on left foot. reports that has been seen at [facility] for intake and is scheduled to see a therapist this month and will be scheduled to see a psychiatrist. admits homelessness and missing family and not working. Psychiatric History (includes Medical, Family, Personal Hx): inpt. was stabilized on abilify but was unable to obtain upon d/c 2nd insur Consultations:: List each consultation separately and include: 1. Reason for request. 2. Findings. 3. Follow-up Summary of Hospital Course include:: 1. Description of specific treatment plan utilized for patients during their course of treatmen. 2. Summarize the time- course for resolution of acute symptoms and/or regressed behaviors. 3. Describe issues identified and worked on during hospitalization. 4. Describe medication utilized. 5. Describe medical problems identified and treated. 6. Reassessment of suicide risk Summary of Hospital Course: pt on admission was started on seroquel, it was gradually uptitrated pt was also started on lexapro for depression pt attended groups, compliant with medications on discharge, mental status was stable, pt denied any current suicidal or homicidal ideations denied perceptual disturbances discharge plan arranged by licensed social worker, [facility] outpatient - Diagnosis (1) Psychosis Current Visit: Yes Status: Acute - Final Diagnosis (DSM 5) Condition upon Discharge: STABLE Disposition: HOME/ ROUTINE Follow-up Treatment Plan: continue with seroquel 300mg qhs [facility] and group therapy licensed social worker to arrange for discharge plan , possible inpatient rehab Prescriptions/Medication Reconciliation: Escitalopram [Lexapro] 10 mg PO DAILY 30 Days #30 tab Nystatin [Nystatin Oral Susp] 5 ml PO TID 7 Days #1 udc QUEtiapine [SEROquel] 300 mg PO HS 30 Days #30 tab traZODone [Desyrel] 200 mg PO HS 30 Days #60 tab - Antipsychotic Medications Pt discharged on 2 or more routine antipsychotic medications: No
== END 2017-08-27 15:02 | disposition home or self-care (01) | DRG 430 ==
LOC: H.ER 03:36 → H.ERHOLD 06:22 → H.PSYCH 08:42
PROVIDERS: ADMIT Psychiatry & Neurology Psychiatry; ATTEND Psychiatry & Neurology Psychiatry
PROC: GZHZZZZ Group Psychotherapy (ICD-10-PCS; principal; 2017-08-20)
PROC: GZ58ZZZ Individual Psychotherapy, Cognitive-Behavioral (ICD-10-PCS; 2017-08-20)
DX: F32.3 Major depressive disorder, single episode, severe with psychotic features (principal); B37.0 Candidal stomatitis; F11.10 Opioid abuse, uncomplicated; F14.159 Cocaine abuse with cocaine-induced psychotic disorder, unspecified; R45.851 Suicidal ideations; E11.9 Type 2 diabetes mellitus without complications; Z91.19 Patient's noncompliance with other medical treatment and regimen; E78.5 Hyperlipidemia, unspecified; E78.00 Pure hypercholesterolemia, unspecified; I10 Essential (primary) hypertension; Z79.84 Long term (current) use of oral hypoglycemic drugs; Z79.82 Long term (current) use of aspirin; Z59.0 Homelessness

== ENCOUNTER 2017-08-30 19:06 | Emergency (ER) | payer MEDICAID, OTHER ==
[2017-08-30 19:06] VITALS: BMI 25.8
[2017-08-30 19:15] VITALS: TEMP 98.5
[2017-08-30] MEDS ORDERED: Sodium Chloride 0.9% 1,000 ML IV STA (19:23)
[2017-08-30 19:53] LABS: BASO % 0.2 % (0.0-2.0); EOS # 0.6 K/uL (0.0-0.7); HEMOGLOBIN 12.2 g/dL (12.0-18.0); LYMPH % 17.3 % (20.0-40.0); MEAN CORPUSCULAR HEMOGLOBIN 30.8 pg (27.0-31.0); MEAN CORPUSCULAR HGB CONC 34.2 g/dL (33.0-37.0); MEAN PLATELET VOLUME 8.7 fl (7.2-11.7); MONO # 0.8 K/uL (0.0-0.8); MONO % 6.5 % (0.0-10.0); NEUT # 8.3 K/uL (1.8-7.0); RBC 3.95 Mil/uL (4.40-5.90); RED CELL DISTRIBUTION WIDTH 13.8 % (11.5-14.5); WHITE BLOOD COUNT 11.7 K/uL (4.8-10.8)
[2017-08-30 20:38] LABS: ALB/GLOB RATIO 1.1 (1.0-2.1); ALBUMIN 3.9 g/dL (3.5-5.0); ALT/SGPT 21 U/L (21-72); AST/SGOT 19 U/L (17-59); BLOOD UREA NITROGEN 18 mg/dl (9-20); CALCIUM 9.2 mg/dL (8.4-10.2); GFR AFRICAN-AMERICAN > 60; GFR NON-AFRICAN AMERICAN > 60; MAGNESIUM 2.1 MG/DL (1.6-2.3)
[2017-08-30] MEDS ORDERED: Alum-Mag Hydrox-Simethicone Susp (30 mL) PO STA (21:36)
[2017-08-30 23:01] VITALS: BP 134/76
--- NOTE | 2017-08-30 23:41 | ED PDOC ---
HPI: Psych/Substance Abuse Time Seen by Provider: 08/30/17 19:18 Chief Complaint (Nursing): Substance Abuse Chief Complaint (Provider): Substance Abuse History Per: Patient History/Exam Limitations: no limitations Onset/Duration Of Symptoms: Mins (prior to arrival) Additional Complaint(s): 41 year old male, well known to the ED, was brought in after being found sleeping of the ground prior to arrival. He denies having used drugs adn admits his last time was 3 days ago. Patient reports his tongue feels dry adn has no other complaints. He denies any headache, focal deficits, hallucinations, SI or HI. PMD: none provided Past Medical History Reviewed: Historical Data, Nursing Documentation, Vital Signs Vital Signs: Last Vital Signs Temp 98.5 F 08/30/17 19:10 Pulse 94 H 08/30/17 23:00 Resp 16 08/30/17 23:00 BP 134/76 08/30/17 23:00 Pulse Ox 98 08/30/17 23:00 - Medical History PMH: Bipolar Disorder, Depression, HTN, Hypercholesterolemia, Schizophrenia Denies: Alzheimer's Disease, Anemia, Arthritis, Asthma, Atrial Fibrillation, Bronchitis, Cardia Arrhythmia, CHF, COPD, Crohn's Disease, Dementia, Diabetes, Diverticulitis, Emphysema, Fractures, Gastritis, Gall Bladder Disease, Hepatitis , HIV, Hyperthyroidism, Hypothyroidism, Kidney Stones, Migraine, Mitral Valve Prolapse, Multiple Sclerosis, Osteoporosis, Pancreatitis, Parkinson's Disease, Peripheral Edema, Pneumonia, Pulmonary Embolism, Chronic Kidney Disease, Rheumatoid Arthritis, Seizures, Sickle Cell Disease, Sexually Transmitted Disease, TIA - Surgical History Surgical History: Denies: Appendectomy, CABG, Carotid Endarterectomy, Cholecystectomy, Coronary Stent, Pacemaker, Tonsillectomy - Family History Family History: States: Unknown Family Hx - Immunization History Hx Tetanus Toxoid Vaccination: No Hx Influenza Vaccination: No Hx Pneumococcal Vaccination: No - Home Medications Home Medications: Ambulatory Orders Medication Instructions Recorded Aspirin [Ecotrin] 81 mg PO DAILY #30 01/29/17 Atorvastatin [Lipitor] 10 mg PO HS tab 05/28/17 ARIPiprazole [Abilify] 20 mg PO DAILY 30 Days #60 tab 08/03/17 Losartan [Cozaar] 25 mg PO DAILY 15 Days #15 tab 08/03/17 traZODone [Desyrel] 100 mg PO HS 30 Days #30 tab 08/03/17 MetFORMIN [glucoPHAGE] 1,000 mg PO DAILY 08/20/17 Escitalopram [Lexapro] 10 mg PO DAILY 30 Days #30 tab 08/27/17 Nystatin [Nystatin Oral Susp] 5 ml PO TID 7 Days #1 udc 08/27/17 QUEtiapine [SEROquel] 300 mg PO HS 30 Days #30 tab 08/27/17 traZODone [Desyrel] 200 mg PO HS 30 Days #60 tab 08/27/17 - Allergies Allergies/Adverse Reactions: Allergies Allergy/AdvReac Type Severity Reaction Status Date / Time No Known Allergies Allergy Verified 07/21/17 11:35 Review of Systems ROS Statement: Except As Marked, All Systems Reviewed And Found Negative - Laboratory Results Result Diagrams: 08/30/17 19:49 08/30/17 19:49 - ECG O2 Sat by Pulse Oximetry: 98 (RA) Pulse Ox Interpretation: Normal Medical Decision Making Medical Decision Making: Time: 19:30 Impression: substance abuse' Initial Plan: --EKG --Urine drug --Alcohol serum --Creatine phospho --magnesium --phosphorus --Troponin I --urine dip --CBC with differentials --Bentyl 25 mg PO --Maalox 30 ml PO --Normla Saline IV 1,00 mls/hr Time: 11:00 Patient ate and is no acute distress. He is stable for discharge and will be discharged home. Return to Ed if symptoms persist or worsen. Scribe Attestation: Documented by Francisca Mota, acting as a scribe for Krysta Earl MD. Provider Scribe Attestation: All medical record entries made by the Scribe were at my direction and personally dictated by me. I have reviewed the chart and agree that the record accurately reflects my personal performance of the history, physical exam, medical decision making, and the department course for this patient. I have also personally directed, reviewed, and agree with the discharge instructions and disposition. Disposition - Clinical Impression Clinical Impression: Substance abuse, Dehydration - Patient ED Disposition Is Patient to be Admitted: No - Disposition Referrals: [facility] [Outside] Disposition Time: 23:46 Condition: STABLE Instructions: Dehydration (ED), Polysubstance Abuse (ED)
[2017-08-31 00:25] VITALS: PULSE 88; RESP 18; O2SAT 99
--- NOTE | 2017-08-31 10:02 | CARD ---
APPROVED REPORT EKG Measurement Heart [id number] <Conclusion> Sinus tachycardia Possible Left atrial enlargement Borderline ECG
== END 2017-08-31 00:27 | disposition home or self-care (01) ==
LOC: H.ER 19:06
DX: F19.10 Other psychoactive substance abuse, uncomplicated (principal); E86.0 Dehydration; E78.00 Pure hypercholesterolemia, unspecified; Z86.59 Personal history of other mental and behavioral disorders; I10 Essential (primary) hypertension; Z79.82 Long term (current) use of aspirin; Z79.84 Long term (current) use of oral hypoglycemic drugs

== ENCOUNTER 2017-09-13 13:06 | Emergency (ER) | payer MEDICAID, OTHER ==
[2017-09-13] MEDS: Sodium Chloride 0.9% 1,000 ML IV STA ×2 (13:10→16:13)
[2017-09-13] MEDS: Naloxone 0.4 mg/ml Inj (Adult) IVP STA (13:10)
[2017-09-13] MEDS ORDERED: Naloxone 0.4 mg/ml Inj (Adult) ONE (13:15)
[2017-09-13 13:24] VITALS: BMI 24.7
--- NOTE | 2017-09-13 13:47 | ED PDOC ---
HPI: Psych/Substance Abuse Time Seen by Provider: 09/13/17 13:23 Chief Complaint (Nursing): Substance Abuse Chief Complaint (Provider): Substance abuse ED Caveat: Acuity of Condition Additional Complaint(s): Pt BIBA EMS after bystanders called due to unsteady gait, admitted to Trazadone prior to entering ambulance. Pt became unresponsive on presentation to ED. Past Medical History Reviewed: Nursing Documentation, Vital Signs Vital Signs: Last Vital Signs Temp 98 F 09/13/17 13:24 Pulse 83 09/13/17 13:24 Resp 18 09/13/17 13:24 BP Pulse Ox 100 09/13/17 13:24 - Medical History PMH: Bipolar Disorder, Depression, HTN, Hypercholesterolemia, Schizophrenia Denies: Alzheimer's Disease, Anemia, Arthritis, Asthma, Atrial Fibrillation, Bronchitis, Cardia Arrhythmia, CHF, COPD, Crohn's Disease, Dementia, Diabetes, Diverticulitis, Emphysema, Fractures, Gastritis, Gall Bladder Disease, Hepatitis , HIV, Hyperthyroidism, Hypothyroidism, Kidney Stones, Migraine, Mitral Valve Prolapse, Multiple Sclerosis, Osteoporosis, Pancreatitis, Parkinson's Disease, Peripheral Edema, Pneumonia, Pulmonary Embolism, Chronic Kidney Disease, Rheumatoid Arthritis, Seizures, Sickle Cell Disease, Sexually Transmitted Disease, TIA - Surgical History Surgical History: Denies: Appendectomy, CABG, Carotid Endarterectomy, Cholecystectomy, Coronary Stent, Pacemaker, Tonsillectomy - Family History Family History: States: Unknown Family Hx - Immunization History Hx Tetanus Toxoid Vaccination: No Hx Influenza Vaccination: No Hx Pneumococcal Vaccination: No - Home Medications Home Medications: Ambulatory Orders Medication Instructions Recorded Aspirin [Ecotrin] 81 mg PO DAILY #30 01/29/17 Atorvastatin [Lipitor] 10 mg PO HS tab 05/28/17 ARIPiprazole [Abilify] 20 mg PO DAILY 30 Days #60 tab 08/03/17 Losartan [Cozaar] 25 mg PO DAILY 15 Days #15 tab 08/03/17 traZODone [Desyrel] 100 mg PO HS 30 Days #30 tab 08/03/17 MetFORMIN [glucoPHAGE] 1,000 mg PO DAILY 08/20/17 Escitalopram [Lexapro] 10 mg PO DAILY 30 Days #30 tab 08/27/17 Nystatin [Nystatin Oral Susp] 5 ml PO TID 7 Days #1 udc 08/27/17 QUEtiapine [SEROquel] 300 mg PO HS 30 Days #30 tab 08/27/17 traZODone [Desyrel] 200 mg PO HS 30 Days #60 tab 08/27/17 Escitalopram [Lexapro] 10 mg PO DAILY #14 tab 09/16/17 QUEtiapine [SEROquel] 300 mg PO HS #14 tab 09/16/17 - Allergies Allergies/Adverse Reactions: Allergies Allergy/AdvReac Type Severity Reaction Status Date / Time No Known Allergies Allergy Verified 09/16/17 11:51 Review of Systems Review Of Systems: ROS cannot be obtained secondary to pt's inabilty to answer questions. Physical Exam - Reviewed Nursing Documentation Reviewed: Yes Vital Signs Reviewed: Yes - Physical Exam Head Exam: Positive for: ATRAUMATIC, NORMAL INSPECTION Skin: Positive for: Warm, Dry, Cyanosis ENT: Positive for: Other ((-) gag reflex) Cardiovascular/Chest: Positive for: Regular Rate, Rhythm Respiratory: Positive for: Other (Agonal respirations) Neurologic/Psych: Positive for: Other (Unresponsive) - Laboratory Results Result Diagrams: 09/13/17 13:40 09/13/17 13:40 - ECG O2 Sat by Pulse Oximetry: 100 Pulse Ox Interpretation: Normal - Critical Care Total Time (In Min): 45 Medical Decision Making Medical Decision Making: Code cart placed on bedside, Narcan 1.2 mg IV administered, immediately prior to intubation pt opened eyes and spontaneous respirations resumed. Time: 13:57 Chest X-Ray FINDINGS: LUNGS: Minor bibasilar atelectasis PLEURA: No significant pleural effusion identified, no pneumothorax apparent. CARDIOVASCULAR: Normal. OSSEOUS STRUCTURES: No significant abnormalities. VISUALIZED UPPER ABDOMEN: Normal. OTHER FINDINGS: None. IMPRESSION: Minor bibasilar atelectasis. Pt admits to heroin use today. 17:30 Pt remained AAOX3 during ED observation, steady gait, ate food without difficulty. Will d/c home. Disposition - Clinical Impression Clinical Impression: Opioid overdose - Disposition Referrals: LTAC[facility] [Outside] Disposition: Routine/Home Disposition Time: 17:30 Condition: IMPROVED Instructions: Drug Abuse and Drug Addiction (DC), Narcotic Overdose Forms: [employer] (Cameroonian)
[2017-09-13 13:53] LABS: BASO % 0.5 % (0.0-2.0); EOS # 0.6 K/uL (0.0-0.7); EOS % 5.7 % (0.0-4.0); LYMPH # 2.5 K/uL (1.0-4.3); LYMPH % 23.7 % (20.0-40.0); MEAN CORPUSCULAR HEMOGLOBIN 30.8 pg (27.0-31.0); MEAN CORPUSCULAR HGB CONC 33.5 g/dL (33.0-37.0); MEAN PLATELET VOLUME 8.2 fl (7.2-11.7); MONO % 9.6 % (0.0-10.0); NEUT # 6.3 K/uL (1.8-7.0); NEUT % 60.5 % (50.0-75.0); NRBC % 0.1 % (0.0-0.0); RBC 4.21 Mil/uL (4.40-5.90); RED CELL DISTRIBUTION WIDTH 13.9 % (11.5-14.5); WHITE BLOOD COUNT 10.4 K/uL (4.8-10.8)
--- NOTE | 2017-09-13 13:58 | RAD ---
HISTORY: Opiate OD COMPARISON: Comparison chest dated 08/20/2017 FINDINGS: LUNGS: Minor bibasilar atelectasis PLEURA: No significant pleural effusion identified, no pneumothorax apparent. CARDIOVASCULAR: Normal. OSSEOUS STRUCTURES: No significant abnormalities. VISUALIZED UPPER ABDOMEN: Normal. OTHER FINDINGS: None. IMPRESSION: Minor bibasilar atelectasis.
[2017-09-13 14:04] LABS: ALB/GLOB RATIO 1.3 (1.0-2.1); ALBUMIN 4.1 g/dL (3.5-5.0); ALT/SGPT 47 U/L (21-72); AST/SGOT 41 U/L (17-59); BLOOD UREA NITROGEN 20 mg/dl (9-20); CALCIUM 9.1 mg/dL (8.4-10.2); GFR AFRICAN-AMERICAN > 60; GFR NON-AFRICAN AMERICAN > 60
[2017-09-13 14:16] LABS: ACETAMINOPHEN < 10.0 ug/ml (10.0-30.0); SALICYLATE < 1.0 mg/dl
[2017-09-13 18:41] VITALS: BP 130/70; RESP 20
[2017-09-13 18:44] VITALS: PULSE 88; TEMP 98.5
[2017-09-13 19:04] LABS: URINE BILIRUBIN NEGATIVE (NEGATIVE); URINE BLOOD NEGATIVE (NEGATIVE); URINE CLARITY SLIGHTY-CLOUDY (Clear); URINE COLOR YELLOW (YELLOW); URINE GLUCOSE (UA) NEG (Normal); URINE LEUKOCYTE ESTERASE NEG Leu/uL (Negative); URINE NITRATE NEGATIVE (NEGATIVE); URINE PROTEIN 30 mg/dL (NEGATIVE); URINE UROBILINOGEN 0.2-1.0 mg/dL (0.2-1.0)
--- NOTE | 2017-09-13 19:06 | CARD ---
APPROVED REPORT EKG Measurement Heart [id number] <Conclusion> Normal sinus rhythm Possible Left atrial enlargement Left ventricular hypertrophy Abnormal ECG
[2017-09-13 19:16] LABS: BARBITURATES, UR NEGATIVE (NEGATIVE); BENZODIAZEPINES, UR NEGATIVE (NEGATIVE); OPIATES, UR POSITIVE (NEGATIVE); PHENCYCLIDINE, UR NEGATIVE (NEGATIVE)
[2017-09-16 13:33] VITALS: O2SAT 100
== END 2017-09-13 18:44 | disposition home or self-care (01) ==
LOC: H.ER 13:06
DX: T40.2X1A Poisoning by other opioids, accidental (unintentional), initial encounter (principal); E78.00 Pure hypercholesterolemia, unspecified; F20.9 Schizophrenia, unspecified; F31.9 Bipolar disorder, unspecified; I10 Essential (primary) hypertension; Z79.82 Long term (current) use of aspirin; Z79.84 Long term (current) use of oral hypoglycemic drugs
CPT/HCPCS: 71045; 80053; 80320; 80324; 80329; 80345; 80346; 80349; 80353; 80358; 80361; 81003; 83992; 85025; 93005; 96361; 96374; 99285; J2310; J7040

== ENCOUNTER 2017-09-16 11:27 | Emergency (ER) | payer MEDICAID, OTHER ==
[2017-09-16 11:27] VITALS: BMI 24.7
[2017-09-16 11:43] VITALS: BP 137/78; RESP 16; TEMP 97; O2SAT 97
[2017-09-16 12:14] VITALS: PULSE 82
--- NOTE | 2017-09-16 12:51 | ED PDOC ---
HPI: General Adult Time Seen by Provider: 09/16/17 12:02 Chief Complaint (Nursing): Med Refill Chief Complaint (Provider): Med Refill History Per: Patient History/Exam Limitations: no limitations Additional Complaint(s): 41 year old male presents to the emergency room requesting a med refill. Patient states he depleted his supply of Lexapro 10mg and Seroquel 300 mg. States he does not have appointment at [facility] yet but is going to his [facility] appointment tomorrow. No complaints at this time. Denies any suicidal ideation, homicidal ideation, or hallucinations. PMD: Harsha Fang Past Medical History Reviewed: Historical Data, Nursing Documentation, Vital Signs Vital Signs: Last Vital Signs Temp 97 F L 09/16/17 11:41 Pulse 82 09/16/17 12:14 Resp 16 09/16/17 11:41 BP 137/78 09/16/17 11:41 Pulse Ox 97 09/16/17 11:41 - Medical History PMH: Bipolar Disorder, Depression, HTN, Hypercholesterolemia, Schizophrenia Denies: Alzheimer's Disease, Anemia, Arthritis, Asthma, Atrial Fibrillation, Bronchitis, Cardia Arrhythmia, CHF, COPD, Crohn's Disease, Dementia, Diabetes, Diverticulitis, Emphysema, Fractures, Gastritis, Gall Bladder Disease, Hepatitis , HIV, Hyperthyroidism, Hypothyroidism, Kidney Stones, Migraine, Mitral Valve Prolapse, Multiple Sclerosis, Osteoporosis, Pancreatitis, Parkinson's Disease, Peripheral Edema, Pneumonia, Pulmonary Embolism, Chronic Kidney Disease, Rheumatoid Arthritis, Seizures, Sickle Cell Disease, Sexually Transmitted Disease, TIA - Surgical History Surgical History: Denies: Appendectomy, CABG, Carotid Endarterectomy, Cholecystectomy, Coronary Stent, Pacemaker, Tonsillectomy - Family History Family History: States: No Known Family Hx - Social History Current smoker - smoking cessation education provided: Yes Alcohol: Social Drugs: Cocaine, Opiates - Immunization History Hx Tetanus Toxoid Vaccination: No Hx Influenza Vaccination: No Hx Pneumococcal Vaccination: No - Home Medications Home Medications: Ambulatory Orders Medication Instructions Recorded Aspirin [Ecotrin] 81 mg PO DAILY #30 01/29/17 Atorvastatin [Lipitor] 10 mg PO HS tab 05/28/17 ARIPiprazole [Abilify] 20 mg PO DAILY 30 Days #60 tab 08/03/17 Losartan [Cozaar] 25 mg PO DAILY 15 Days #15 tab 08/03/17 traZODone [Desyrel] 100 mg PO HS 30 Days #30 tab 08/03/17 MetFORMIN [glucoPHAGE] 1,000 mg PO DAILY 08/20/17 Escitalopram [Lexapro] 10 mg PO DAILY 30 Days #30 tab 08/27/17 Nystatin [Nystatin Oral Susp] 5 ml PO TID 7 Days #1 udc 08/27/17 QUEtiapine [SEROquel] 300 mg PO HS 30 Days #30 tab 08/27/17 traZODone [Desyrel] 200 mg PO HS 30 Days #60 tab 08/27/17 Escitalopram [Lexapro] 10 mg PO DAILY #14 tab 09/16/17 QUEtiapine [SEROquel] 300 mg PO HS #14 tab 09/16/17 - Allergies Allergies/Adverse Reactions: Allergies Allergy/AdvReac Type Severity Reaction Status Date / Time No Known Allergies Allergy Verified 09/16/17 11:51 Review of Systems ROS Statement: Except As Marked, All Systems Reviewed And Found Negative Psych: Negative for: Suicidal ideation (or homicidal), Other (hallucinations) Physical Exam - Reviewed Nursing Documentation Reviewed: Yes Vital Signs Reviewed: Yes - Physical Exam Appears: Positive for: Well, Non-toxic, No Acute Distress Skin: Positive for: Normal Color Eye Exam: Positive for: Normal appearance Respiratory: Negative for: Respiratory Distress Neurologic/Psych: Positive for: Alert, Oriented, Mood/Affect (Calm and cooperative) - ECG O2 Sat by Pulse Oximetry: 97 (RA) Pulse Ox Interpretation: Normal Medical Decision Making Medical Decision Making: Patient is medically stable, and requires no further treatment in the ED at this time. Will discharge patient with prescriptions for Seroquel and Lexapro. Advised to follow up with outpatient services without fail. Scribe Attestation: Documented by Ellen Hurtado, acting as a scribe for Vahid Maciel PA-C Provider Scribe Attestation: All medical record entries made by the Scribe were at my direction and personally dictated by me. I have reviewed the chart and agree that the record accurately reflects my personal performance of the history, physical exam, medical decision making, and the department course for this patient. I have also personally directed, reviewed, and agree with the discharge instructions and disposition. Disposition - Clinical Impression Clinical Impression: Medication refill - Patient ED Disposition Is Patient to be Admitted: No Counseled Patient/Family Regarding: Diagnosis, Need For Followup, Rx Given - Disposition Referrals: [facility] [Outside] Disposition: Routine/Home Disposition Time: 12:25 Condition: STABLE Additional Instructions: [facility] for [facility]. Go to your [facility] appointment tomorrow without fail. Prescriptions: Escitalopram [Lexapro] 10 mg PO DAILY #14 tab QUEtiapine [SEROquel] 300 mg PO HS #14 tab Instructions: Where to Get Help Paying for Your Prescriptions Forms: [employer] (Icelandic) Print Language: WOLOF - POA Present On Arrival: None
== END 2017-09-16 12:22 | disposition home or self-care (01) ==
LOC: H.ER 11:27
DX: Z76.0 Encounter for issue of repeat prescription (principal)